=== PATIENT | female | born 1960 | race Caucasian/White ===

== ENCOUNTER 2016-10-09 11:16 | Emergency (ER) | payer SELFPAY ==
--- NOTE | 2016-10-09 11:42 | ER Document Report ---
ED Medical Screen (RME) - General Chief Complaint: Abdominal Pain Stated Complaint: STOMACH PAIN Time seen by provider: 11:41 Mode of Arrival: Ambulatory Information source: Patient Notes: 56-year-old female complaining of left-sided abdominal pain for a week. She has diarrhea and vomiting without blood or mucus. Fever Tuesday and Tuesday. Pain level is 4/5. Which is worse today. TRAVEL OUTSIDE OF THE [place] IN LAST 30 DAYS: No - Related Data Allergies/Adverse Reactions: No Known Allergies Allergy (Verified 10/09/16 11:40) Past Medical History - Past Medical History Cardiac Medical History: Reports: Hx Hypertension Pulmonary Medical History: Reports: Hx Tuberculosis - as a child, treated Neurological Medical History: Reports: Hx Migraine Past Surgical History: Reports: Hx Cholecystectomy, Hx Genitourinary Surgery - BLADDER SLING, Hx Hysterectomy, Hx Orthopedic Surgery - carpal tunnel, both wrists - Immunizations Hx Diphtheria, Pertussis, Tetanus Vaccination: No
[2016-10-09 12:15] LABS: ABSOLUTE EOSINOPHILS # (AUTO) 0.1 10^3/uL (0.0-0.6); ABSOLUTE LYMPHOCYTES (AUTO) 1.7 10^3/uL (0.5-4.7); ABSOLUTE MONOCYTES (AUTO) 0.5 10^3/uL (0.1-1.4); ABSOLUTE NEUT (AUTO) 4.1 10^3/uL (1.7-8.2); BASOPHILS % (AUTO) 0.6 % (0-2); EOSINOPHILS % (AUTO) 1.4 % (0-6); HEMATOCRIT 46.2 % (36.0-47.0); HEMOGLOBIN 15.3 g/dL (12.0-15.5); HGB HCT DIFFERENCE -0.3; LYMPHOCYTES % (AUTO) 26.5 % (13-45); MEAN CORPUSCULAR HEMOGLOBIN 30.1 pg (27.0-33.4); MEAN CORPUSCULAR VOLUME 91 fl (80-97); MONOCYTES % (AUTO) 8.2 % (3-13); RED BLOOD COUNT 5.07 10^6/uL (3.72-5.28); RED CELL DISTRIBUTION WIDTH 13.8 % (11.5-14.0); SEGMENTED NEUTROPHILS % (AUTO) 63.3 % (42-78); WHITE BLOOD COUNT 6.5 10^3/uL (4.0-10.5)
[2016-10-09 12:19] LABS: APPEARANCE,URINE CLOUDY; BILIRUBIN,URINE NEGATIVE (NEGATIVE); GLUCOSE, URINE NEGATIVE (NEGATIVE); KETONES,URINE NEGATIVE (NEGATIVE); LEUKOCYTE ESTERASE,URINE LARGE (NEGATIVE); NITRITE,URINE NEGATIVE (NEGATIVE); PROTEIN,URINE NEGATIVE (NEGATIVE); URINE SPECIFIC GRAVITY 1.018
[2016-10-09 12:28] LABS: ALANINE AMINOTRANSFERASE 48 U/L (9-52); ALBUMIN 5.3 g/dL (3.5-5.0); ALKALINE PHOSPHATASE 82 U/L (38-126); ANION GAP 14 (5-19); ASPARTATE AMINO TRANSFERASE 36 U/L (14-36); BILIRUBIN,TOTAL 1.1 mg/dL (0.2-1.3); BLOOD UREA NITROGEN 10 mg/dL (7-20); CALCIUM 10.3 mg/dL (8.4-10.2); CARBON DIOXIDE 25 mmol/L (22-30); CHLORIDE 108 mmol/L (98-107); CREATININE RESULT 0.74 mg/dL (0.52-1.25); GLUCOSE 97 mg/dL (75-110); LIPASE 96.4 U/L (23-300); POTASSIUM 3.9 mmol/L (3.6-5.0); SODIUM 146.6 mmol/L (137-145); TOTAL PROTEIN 7.9 g/dL (6.3-8.2)
--- NOTE | 2016-10-09 13:25 | ER Document Report ---
ED General - General Chief Complaint: Abdominal Pain Stated Complaint: STOMACH PAIN Mode of Arrival: Ambulatory Information source: Patient Notes: Patient presents to the emergency department with complaints of left upper quadrant abdominal pain urinary frequency and cloudy urine for one-week. Patient also reports she had vomiting and diarrhea on Tuesday and Tuesday of this week but no recent v/d. Patient reports she had to call out of work. Denies past medical history of chronic illnesses. Reports she received a flu shot last Tuesday and hasn't felt well since that time. TRAVEL OUTSIDE OF THE [place] IN LAST 30 DAYS: No - HPI Onset: Other - tuesday Quality of pain: Achy Severity: Moderate Pain Level: 3 Associated symptoms: None Exacerbated by: Denies Relieved by: Denies Similar symptoms previously: No Recently seen / treated by doctor: No - Related Data Allergies/Adverse Reactions: No Known Allergies Allergy (Verified 10/09/16 12:00) Past Medical History - General Information source: Patient - Social History Smoking Status: Unknown if Ever Smoked Chew tobacco use (# tins/day): No Frequency of alcohol use: None Drug Abuse: None Family History: Reviewed & Not Pertinent Patient has suicidal ideation: No Patient has homicidal ideation: No - Past Medical History Cardiac Medical History: Reports: Hx Hypertension Pulmonary Medical History: Reports: Hx Tuberculosis - as a child, treated Neurological Medical History: Reports: Hx Migraine Renal/ Medical History: Denies: Hx Peritoneal Dialysis Past Surgical History: Reports: Hx Cholecystectomy, Hx Genitourinary Surgery - BLADDER SLING, Hx Hysterectomy, Hx Orthopedic Surgery - carpal tunnel, both wrists - Immunizations Hx Diphtheria, Pertussis, Tetanus Vaccination: No Review of Systems - Review of Systems Notes: Review HPI for review of systems., All other systems negative Physical Exam - Vital signs Vitals: Temp Pulse Resp BP Pulse Ox 97.9 F 62 22 H 134/72 H 98 10/09/16 11:56 10/09/16 11:56 10/09/16 11:56 10/09/16 11:56 10/09/16 11:56 - Notes Notes: PHYSICAL EXAMINATION: GENERAL: Well-appearing and in no acute distress HEAD: Atraumatic, normocephalic. EYES: Pupils equal round and reactive to light, extraocular movements intact, sclera anicteric, conjunctiva are normal. ENT: nares patent, oropharynx clear without exudates. Moist mucous membranes. NECK: Normal range of motion, supple without lymphadenopathy LUNGS: CTAB and equal. No wheezes rales or rhonchi. HEART: Regular rate and rhythm without murmurs ABDOMEN: Soft, no tenderness. No guarding, no rebound no pain on palpation BACK: Denies pain EXTREMITIES: Normal range of motion, no pitting edema. No cyanosis. NEUROLOGICAL: Cranial nerves grossly intact. Normal sensory/motor exams. PSYCH: Normal mood, normal affect. SKIN: Warm, Dry, normal turgor, no rashes or lesions noted Course - Re-evaluation Re-evalutation: 10/09/16 Patient instructed on labs. Patient instructed on medication. She was instructed on signs and symptoms of allergic reaction. She was also instructed on the importance of follow-up for urine recheck in one week. She verbalized understanding. - Vital Signs Vital signs: Temp Pulse Resp BP Pulse Ox 98.1 F 67 18 134/87 H 98 10/09/16 13:30 10/09/16 13:30 10/09/16 13:30 10/09/16 13:30 10/09/16 13:30 - Laboratory Result Diagrams: 10/09/16 11:48 10/09/16 11:48 Laboratory results interpreted by me: 10/09/16 10/09/16 11:48 11:48 Sodium 146.6 H Chloride 108 H Calcium 10.3 H Albumin 5.3 H Urine Urobilinogen 2.0 H Ur Leukocyte Esterase LARGE H Discharge - Discharge Clinical Impression: elevated blood pressure Abdominal pain Qualifiers: Abdominal location: left upper quadrant Qualified Code(s): R10.12 - Left upper quadrant pain Urinary tract infection Qualifiers: Urinary tract infection type: site unspecified Hematuria presence: without hematuria Qualified Code(s): N39.0 - Urinary tract infection, site not specified Condition: Stable Disposition: HOME, SELF-CARE Instructions: Abdominal Pain ([facility]), Urinary Tract Infection ([facility]), Trimethoprim -Sulfa ([facility]) Additional Instructions: *You have been evaluated for abdominal pain, urinary frequency, UTI *Monitor your blood pressure. Your blood pressure was elevated today. This may be because you were anxious, in pain or because you need medication. It is important to follow up with your primary care provider for full evaluation. *Take medication as prescribed *Push fluids *Follow up with a primary care provider within one week for recheck *Plan urine recheck in one week *Return to ED for worsening condition, changes, needs *Return to ED if not better within 48 hours Prescriptions: Sulfamethoxazole/Trimethoprim [Bactrim Ds Tablet] 1 each PO BID #10 tablet Forms: Elevated Blood Pressure, Return to Work
[2016-10-09 13:34] VITALS: BP 134/87
== END 2016-10-09 13:34 | disposition home or self-care (01) ==
LOC: ER 11:16
DX: N39.0 Urinary tract infection, site not specified (principal); R10.12 Left upper quadrant pain; R35.0 Frequency of micturition; R11.10 Vomiting, unspecified; R19.7 Diarrhea, unspecified; I10 Essential (primary) hypertension; Z86.11 Personal history of tuberculosis; Z90.49 Acquired absence of other specified parts of digestive tract; Z90.710 Acquired absence of both cervix and uterus
CPT/HCPCS: 36415; 80053; 81001; 83690; 85025; 87086; 99284

== ENCOUNTER 2017-01-29 04:12 | Emergency (ER) | payer OTHER ==
[2017-01-29 04:20] VITALS: BP 140/84
--- NOTE | 2017-01-29 05:19 | ER Document Report ---
ED Foreign Body - General Chief Complaint: Foreign Body in Ear Stated Complaint: POSSIBLE BUG IN LEFT EAR Time Seen by Provider: 01/29/17 04:53 Notes: Patient is a 56-year-old female comes emergency department for chief complaint of possible bug in her left ear. She states that she awoke tonight to a crawling sensation and a buzzing noise. She put peroxide in her ears. She denies any current symptoms. She did not put a Q-tip in her ear or any other objects. She denies any other symptoms. TRAVEL OUTSIDE OF THE [place] IN LAST 30 DAYS: No - Related Data Allergies/Adverse Reactions: No Known Allergies Allergy (Verified 10/09/16 12:00) Past Medical History - General Information source: Patient - Social History Smoking Status: Never Smoker Frequency of alcohol use: None Lives with: Family Family History: Reviewed & Not Pertinent Patient has suicidal ideation: No Patient has homicidal ideation: No - Past Medical History Cardiac Medical History: Reports: Hx Hypertension Pulmonary Medical History: Reports: Hx Tuberculosis - as a child, treated Neurological Medical History: Reports: Hx Migraine Renal/ Medical History: Denies: Hx Peritoneal Dialysis Past Surgical History: Reports: Hx Cholecystectomy, Hx Genitourinary Surgery - BLADDER SLING, Hx Hysterectomy, Hx Orthopedic Surgery - carpal tunnel, both wrists - Immunizations Hx Diphtheria, Pertussis, Tetanus Vaccination: No Review of Systems - Review of Systems Constitutional: No symptoms reported EENT: See HPI Cardiovascular: No symptoms reported Respiratory: No symptoms reported Gastrointestinal: No symptoms reported Genitourinary: No symptoms reported Female Genitourinary: No symptoms reported Musculoskeletal: No symptoms reported Skin: No symptoms reported Hematologic/Lymphatic: No symptoms reported Neurological/Psychological: No symptoms reported Physical Exam - Vital signs Vitals: Temp Pulse Resp BP Pulse Ox 97.5 F 61 18 140/84 H 100 01/29/17 04:17 01/29/17 04:17 01/29/17 04:17 01/29/17 04:17 01/29/17 04:17 Interpretation: Normal - General General appearance: Appears well, Alert In distress: None - HEENT Head: Normocephalic, Atraumatic Eyes: Normal Conjunctiva: Normal Extraocular movements intact: Yes Eyelashes: Normal Pupils: PERRL Ears: Normal External canal: Foreign body - There appears to be a very small dark colored insect near the tympanic membrane in the back of the left ear canal. No bleeding, normal TM, normal examination otherwise Tympanic membrane: Normal Sinus: Normal Nasal: Normal Mouth/Lips: Normal Mucous membranes: Normal Pharynx: Normal Neck: Normal - Respiratory Respiratory status: No respiratory distress Chest status: Nontender Breath sounds: Normal Chest palpation: Normal - Cardiovascular Rhythm: Regular Heart sounds: Normal auscultation Murmur: No - Abdominal Inspection: Normal Distension: No distension Bowel sounds: Normal Tenderness: Nontender Organomegaly: No organomegaly - Back Back: Normal, Nontender - Extremities General upper extremity: Normal inspection, Nontender, Normal color, Normal ROM , Normal temperature General lower extremity: Normal inspection, Nontender, Normal color, Normal ROM , Normal temperature, Normal weight bearing. No: Ad's sign - Neurological Neuro grossly intact: Yes Cognition: Normal Orientation: AAOx4 Claudio Coma Scale Eye Opening: Spontaneous Claudio Coma Scale Verbal: Oriented Claudio Coma Scale Motor: Obeys Commands [place] Coma Scale Total: 15 Speech: Normal Motor strength normal: LUE, RUE, LLE, RLE Sensory: Normal - Psychological Associated symptoms: Normal affect, Normal mood - Skin Skin Temperature: Warm Skin Moisture: Dry Skin Color: Normal Course - Re-evaluation Re-evalutation: Quickly irrigated patient here, small insect removed intact (appears to be a large gnat). Normal examination of ear and canal afterwards. No other abnormalities noted. - Vital Signs Vital signs: Temp Pulse Resp BP Pulse Ox 97.5 F 61 18 140/84 H 100 01/29/17 04:01/29/17 04:17 01/29/17 04:17 01/29/17 04:01/29/17 04:17 Procedures - Additional Procedures ear irrigation Notes: Applied 3 drops of tetracaine, used lukewarm water to flush the left ear with 30 mL, small insect removedintact, evaluation afterwards unremarkable. Patient tolerated very well. Discharge - Discharge Clinical Impression: Ear foreign body Qualifiers: Encounter type: initial encounter Laterality: left Qualified Code(s): T16.2XXA - Foreign body in left ear, initial encounter Condition: Stable Disposition: HOME, SELF-CARE Additional Instructions: The insect has been removed. Follow-up with primary care. Return to the department for any concerning symptoms. Forms: Return to Work, Elevated Blood Pressure
== END 2017-01-29 05:30 | disposition home or self-care (01) ==
LOC: ER 04:12
DX: T16.2XXA Foreign body in left ear, initial encounter (principal)
CPT/HCPCS: 99282

== ENCOUNTER 2017-04-12 13:41 | Emergency (ER) | payer OTHER ==
[2017-04-12 13:52] VITALS: BP 146/77
--- NOTE | 2017-04-12 14:07 | ER Document Report ---
HPI - HPI Pain Level: 3 - REPRODUCTIVE Reproductive: DENIES: : - DERM Skin Color: Normal Past Medical History - Social History Family History: Reviewed & Not Pertinent Patient has suicidal ideation: No Patient has homicidal ideation: No - Past Medical History Cardiac Medical History: Reports: Hx Hypertension Pulmonary Medical History: Reports: Hx Tuberculosis - as a child, treated Neurological Medical History: Reports: Hx Migraine Renal/ Medical History: Denies: Hx Peritoneal Dialysis Past Surgical History: Reports: Hx Cholecystectomy, Hx Genitourinary Surgery - BLADDER SLING, Hx Hysterectomy, Hx Orthopedic Surgery - carpal tunnel, both wrists - Immunizations Hx Diphtheria, Pertussis, Tetanus Vaccination: No Vertical Provider Document - INFECTION CONTROL TRAVEL OUTSIDE OF THE [place] IN LAST 30 DAYS: No - RESPIRATORY O2 Sat by Pulse Oximetry: 96 Course - Vital Signs Vital signs: Temp Pulse Resp BP Pulse Ox 98.0 F 63 16 146/77 H 96 04/12/17 13:52 04/12/17 13:52 04/12/17 13:52 04/12/17 13:52 04/12/17 13:52
--- NOTE | 2017-04-12 15:03 | ER Document Report ---
ED Headache - General Chief Complaint: Ear Pain Stated Complaint: LEFT SIDE HEAD PAIN,DIZZY Time Seen by Provider: 04/12/17 14:07 Mode of Arrival: Ambulatory Information source: Patient Notes: 56-year-old female had sudden onset of exertional left parietal headache at 1030 yesterday morning level 1/5 and within an hour it was level 4/5 with associated vertigo, roaring in ears, blurry vision, and nausea and felt like she was going to have diarrhea. She layed around yesterday. this morning when she woke up she had bilateral base of head/neck pain, frontal headache and persistant roaring in ears and vertigo. No fever. No recent URI. Hx migraines 3- 4 times per month, that are only in the front. Has been told in the past to have a work up for aneurysm but never followed up. Ct done 07/2013 which was negative for the same presenting complaint that I found in her medical record. TRAVEL OUTSIDE OF THE [place] IN LAST 30 DAYS: No - Related Data Allergies/Adverse Reactions: No Known Allergies Allergy (Verified 04/12/17 13:49) Past Medical History - General Information source: Patient - Social History Smoking Status: Current Every Day Smoker Frequency of alcohol use: None Drug Abuse: None Lives with: Family Family History: Reviewed & Not Pertinent Patient has suicidal ideation: No Patient has homicidal ideation: No - Past Medical History Cardiac Medical History: Reports: Hx Hypertension Pulmonary Medical History: Reports: Hx Tuberculosis - as a child, treated Neurological Medical History: Reports: Hx Migraine Renal/ Medical History: Denies: Hx Peritoneal Dialysis Past Surgical History: Reports: Hx Cholecystectomy, Hx Genitourinary Surgery - BLADDER SLING, Hx Hysterectomy, Hx Orthopedic Surgery - carpal tunnel, both wrists - Immunizations Hx Diphtheria, Pertussis, Tetanus Vaccination: No Review of Systems - Review of Systems Constitutional: No symptoms reported EENT: See HPI Cardiovascular: No symptoms reported Respiratory: No symptoms reported Gastrointestinal: No symptoms reported Genitourinary: No symptoms reported Female Genitourinary: No symptoms reported Musculoskeletal: No symptoms reported Skin: No symptoms reported Hematologic/Lymphatic: No symptoms reported Neurological/Psychological: See HPI Physical Exam - Vital signs Vitals: Temp Pulse Resp BP Pulse Ox 98 F 74 14 146/7 H 100 04/12/17 13:49 04/12/17 13:49 04/12/17 13:49 04/12/17 13:49 04/12/17 13:49 Interpretation: Normal - General General appearance: Appears well, Alert In distress: None - HEENT Head: Normocephalic, Atraumatic Eyes: Normal Conjunctiva: Normal Extraocular movements intact: Yes Pupils: PERRL Nerve palsy: No External canal: Normal Tympanic membrane: Normal Mucous membranes: Normal Pharynx: Normal Neck: Supple. No: Lymphadenopathy - Respiratory Respiratory status: No respiratory distress Chest status: Nontender Breath sounds: Normal Chest palpation: Normal - Cardiovascular Rhythm: Regular Heart sounds: Normal auscultation Murmur: No - Abdominal Inspection: Normal Distension: No distension Bowel sounds: Normal Tenderness: Nontender Organomegaly: No organomegaly - Back Back: Normal, Nontender - Extremities General upper extremity: Normal inspection, Nontender, Normal color, Normal ROM , Normal temperature General lower extremity: Normal inspection, Nontender, Normal color, Normal ROM , Normal temperature, Normal weight bearing. No: Ad's sign - Neurological Neuro grossly intact: Yes Cognition: Normal Orientation: AAOx4 Claudio Coma Scale Eye Opening: Spontaneous [place] Coma Scale Verbal: Oriented [place] Coma Scale Motor: Obeys Commands Claudio Coma Scale Total: 15 Speech: Normal Motor strength normal: LUE, RUE, LLE, RLE Sensory: Normal - Psychological Associated symptoms: Normal affect, Normal mood - Skin Skin Temperature: Warm Skin Moisture: Dry Skin Color: Normal Skin irregularity: negative: Rash Course - Re-evaluation Re-evalutation: 04/12/17 14:[address] and need for LP to r/o SAH. He recommends doing a fluoroscopy LP adn will see the pt 04/12/17 15:09 Told about the same hx from -2012, and he will see pt before deciding about the lumbar puncture 04/12/17 15:[address], she does not remember the symptoms or being in this ER 2012. 04/12/17 15:45 dr. hernandez saw the pt and says that the LP is not needed, treatwith meds and I will refer to neurologyl. Pt also told him that she has had MR in the past, that they though that she should be evaluated for aneurysm but she did not because she got . 04/12/17 16:24 Headache level down to 2/5 she is feeling better and resting on her right side. 04/12/17 16:42 04/12/17 16:45 headache 0/5 - Vital Signs Vital signs: Temp Pulse Resp BP Pulse Ox 98.0 F 63 16 146/77 H 96 04/12/17 13:52 04/12/17 13:52 04/12/17 13:52 04/12/17 13:52 04/12/17 13:52 Discharge - Discharge Clinical Impression: Vertigo Headache Qualifiers: Headache type: unspecified Headache chronicity pattern: acute headache Intractability: not intractable Qualified Code(s): R51 - Headache Condition: Stable Disposition: HOME, SELF-CARE Instructions: Headache ([facility]), Vertigo ([facility]), Meclizine ([facility]), Neurologist Additional Instructions: see the neurologist meclizine for the vertigo plenty of fluids tylenol and motrin for headache to er if worse Please complete the patient satisfaction survey if you get one, and return it.. If you do not receive a survey, then you can go to the [facility] website, [email or web address] and place your comments about your very good care. Thank you very much. It was a pleasure being your medical provider today. Prescriptions: Meclizine HCl [Antivert 25 mg Tablet] 50 mg PO QID #60 tablet Referrals: RODNEY ROSARIO MD [ACTIVE STAFF] - Follow up as needed
--- NOTE | 2017-04-12 15:06 | RADIOLOGY REPORT (SQ) ---
EXAM DESCRIPTION: CT HEAD WITHOUT COMPLETED DATE/TIME: 04/12/2017 2:59 pm REASON FOR STUDY: headache COMPARISON: 08/04/2013. TECHNIQUE: Axial images acquired through the brain without intravenous contrast. Images reviewed wi th bone, brain and subdural windows. Images stored on PACS. All CT scanners at this facility use dose modulation, iterative reconstruction, and/or weight based d osing when appropriate to reduce radiation dose to as low as reasonably achievable (ALARA). [facility]: Dose Right [facility]: CareDose [facility]: Dose Right [facility]: Teradose 4D [facility]: Smart Bunch RADIATION DOSE: Up-to-date CT equipment and radiation dose reduction techniques were employed. CTDIv ol: 64.6 mGy. DLP: 1163 mGy-cm. mGy. LIMITATIONS: None. FINDINGS: VENTRICLES: Normal size and contour. CEREBRUM: No masses. No hemorrhage. No midline shift. Normal ocampo/white matter differentiation. N o evidence for acute infarction. CEREBELLUM: No masses. No hemorrhage. No alteration of density. No evidence for acute infarction. EXTRAAXIAL SPACES: No fluid collections. No masses. ORBITS AND GLOBE: No intra- or extraconal masses. Normal contour of globe without masses. CALVARIUM: No fracture. PARANASAL SINUSES: No fluid or mucosal thickening. SOFT TISSUES: No mass or hematoma. OTHER: No other significant finding. IMPRESSION: NORMAL BRAIN CT WITHOUT CONTRAST. TECHNICAL DOCUMENTATION: JOB ID: [id number] Quality ID # [id number]: Final reports with documentation of one or more dose reduction techniques (e.g., Au tomated exposure control, adjustment of the mA and/or kV according to patient size, use of iterative reconstruction technique) 2010 [employer]- All Rights Reserved
[2017-04-12] MEDS ORDERED: NORMAL SALINE 1000 ML 1,000 ML IV ONE (15:10)
[2017-04-12] MEDS ORDERED: PROCHLORPERAZINE EDISYLATE INJ 10 MG/2 ML VIAL IV ONE (15:10)
[2017-04-12] MEDS ORDERED: DIPHENHYDRAMINE HCL 50 MG/ML VIAL IV ONE (15:10)
[2017-04-12] MEDS ORDERED: KETOROLAC TROMETHAMINE INJ/PF 30 MG/1 ML SDV IV ONE (15:39)
== END 2017-04-12 17:09 | disposition home or self-care (01) ==
LOC: ER 13:41
DX: R42 Dizziness and giddiness (principal); R51 Headache; H92.02 Otalgia, left ear; F17.200 Nicotine dependence, unspecified, uncomplicated
CPT/HCPCS: 99283; 96374; 96375; 70450; J1200; J1885; J0780; J7030

== ENCOUNTER 2017-08-13 14:22 | Observation (INO) | payer OTHER ==
[2017-08-13] MEDS ORDERED: ASPIRIN 81 MG TABLET, CHEWABLE PO ONE (15:08)
--- NOTE | 2017-08-13 15:08 | ER Document Report ---
ED Medical Screen (RME) - General Chief Complaint: Chest Pain > 30 Stated Complaint: CHEST PAIN Time Seen by Provider: 08/13/17 15:07 TRAVEL OUTSIDE OF THE [place] IN LAST 30 DAYS: No - HPI Notes: 08/13/17 15:07 Chest pain since yesterday - Related Data Allergies/Adverse Reactions: No Known Allergies Allergy (Verified 08/13/17 14:39) Past Medical History - Social History Frequency of alcohol use: Occasional Drug Abuse: None - Past Medical History Cardiac Medical History: Reports: Hx Hypertension Pulmonary Medical History: Reports: Hx Tuberculosis - as a child, treated Neurological Medical History: Reports: Hx Migraine Renal/ Medical History: Denies: Hx Peritoneal Dialysis Past Surgical History: Reports: Hx Cholecystectomy, Hx Genitourinary Surgery - BLADDER SLING, Hx Hysterectomy, Hx Orthopedic Surgery - carpal tunnel, both wrists - Immunizations Hx Diphtheria, Pertussis, Tetanus Vaccination: No Review of Systems - Review of Systems Cardiovascular: Chest pain Physical Exam - Vital signs Vitals: Temp Pulse Resp BP Pulse Ox 98.4 F 72 16 120/80 96 08/13/17 14:35 08/13/17 14:35 08/13/17 14:35 08/13/17 14:35 08/13/17 14:35 - Respiratory Respiratory status: No respiratory distress Chest status: Nontender Breath sounds: Normal Chest palpation: Normal Course - Vital Signs Vital signs: Temp Pulse Resp BP Pulse Ox 98.4 F 72 16 120/80 96 08/13/17 14:35 08/13/17 14:35 08/13/17 14:35 08/13/17 14:35 08/13/17 14:35
--- NOTE | 2017-08-13 15:39 | ER Document Report ---
ED Cardiac - General Chief Complaint: Chest Pain > 30 Stated Complaint: CHEST PAIN Time Seen by Provider: 08/13/17 15:07 Mode of Arrival: Ambulatory Information source: Patient TRAVEL OUTSIDE OF THE [place] IN LAST 30 DAYS: No - HPI Patient complains to provider of: Chest pain Use of: denies: Alcohol, Amphetamines, Bath salts, Caffeine, Cocaine, Decongestants Was the onset of pain: Sudden When did pain begin: YESTERDAY AFTERNOON Is the pain a: New problem Chest pain location: Other - L. PARASTERNAL Quality of pain: Dull - MOSTLY, Sharp - OCCASIONALLY Chest pain radiation location: Left shoulder Severity now: None Severity at worst: Moderate Chest pain precipitating factors: At Rest Cardiac risk factors: Hypertension, Smoker. denies: Diabetes, Hx MS Positive cardiac history: No Associated symptoms: Nausea/vomiting, Shortness of breath. denies: Diaphoresis Exacerbated by: Denies Relieved by: Nothing Similar symptoms previously: No Recently seen / treated by doctor: Yes - Dx & Rx FOR "VAGINAL INFECTION" - Related Data Allergies/Adverse Reactions: No Known Allergies Allergy (Verified 08/13/17 14:39) Past Medical History - General Information source: Patient - Social History Smoking Status: Current Every Day Smoker Cigarette use (# per day): Yes Chew tobacco use (# tins/day): No Smoking Education Provided: No Frequency of alcohol use: Occasional Drug Abuse: None Lives with: Family Family History: denies: CAD Patient has suicidal ideation: No Patient has homicidal ideation: No - Past Medical History Cardiac Medical History: Reports: Hx Hypertension Pulmonary Medical History: Reports: Hx Tuberculosis - as a child, treated Neurological Medical History: Reports: Hx Migraine Renal/ Medical History: Denies: Hx Peritoneal Dialysis Past Surgical History: Reports: Hx Cholecystectomy, Hx Genitourinary Surgery - BLADDER SLING, Hx Hysterectomy, Hx Orthopedic Surgery - carpal tunnel, both wrists - Immunizations Hx Diphtheria, Pertussis, Tetanus Vaccination: No Review of Systems - Review of Systems Constitutional: No symptoms reported. denies: Diaphoresis EENT: No symptoms reported Cardiovascular: See HPI Respiratory: See HPI Gastrointestinal: See HPI Genitourinary: No symptoms reported Female Genitourinary: See HPI Musculoskeletal: No symptoms reported Skin: No symptoms reported Neurological/Psychological: No symptoms reported Physical Exam - Vital signs Vitals: Temp Pulse Resp BP Pulse Ox 98.4 F 72 16 120/80 96 08/13/17 14:35 08/13/17 14:35 08/13/17 14:35 08/13/17 14:35 08/13/17 14:35 Interpretation: Normal. No: Hypertensive, Tachycardic, Tachypneic - General General appearance: Appears well, Alert In distress: None - HEENT Head: Normocephalic Eyes: Normal Conjunctiva: Normal Ears: Normal Nasal: Normal Mouth/Lips: Normal Mucous membranes: Normal Pharynx: Normal Neck: Normal - Respiratory Respiratory status: No respiratory distress Chest status: Tender - MILDLY, IN AREA OF COMPLAINT Breath sounds: Normal - Cardiovascular Rhythm: Regular Heart sounds: Normal auscultation Murmur: No - Abdominal Inspection: Obese Bowel sounds: Normal - Back Back: Normal - Extremities General upper extremity: Normal inspection General lower extremity: Normal inspection. No: Tender, Edema - Neurological Neuro grossly intact: Yes Cognition: Normal Orientation: AAOx4 - Psychological Associated symptoms: Normal affect, Normal mood - Skin Skin Temperature: Warm Skin Moisture: Dry Skin Color: Normal Skin Turgor: Elastic Course - Vital Signs Vital signs: Temp Pulse Resp BP Pulse Ox 98.4 F 72 16 120/80 96 08/13/17 14:35 08/13/17 14:35 08/13/17 14:35 08/13/17 14:35 08/13/17 15:51 - Laboratory Result Diagrams: 08/13/17 15:30 08/13/17 15:30 Laboratory results interpreted by me: 08/13/17 08/13/17 15:30 15:30 WBC 10.9 H Hgb 16.2 H RDW 14.1 H Sodium 146.6 H - EKG Interpretation by In EKG shows normal: Sinus rhythm, Intervals, QRS Complexes, ST-T Waves. abnormal : [place] Rate: Normal Rhythm: NSR [place]/QRS: Left axis deviation - BORDERLINE When compared to previous EKG there are: Previous EKG unavailable - Consults DR. QUINN Time consulted: 17:22 Consulted provider: will come to ER Discharge - Discharge Clinical Impression: Chest pain with moderate risk for cardiac etiology Condition: Good Disposition: ADMITTED OBSERVATION Admitting Provider: Hospitalist Unit Admitted: Telemetry
[2017-08-13 15:50] LABS: ABSOLUTE EOSINOPHILS # (AUTO) 0.1 10^3/uL (0.0-0.6); ABSOLUTE LYMPHOCYTES (AUTO) 2.2 10^3/uL (0.5-4.7); ABSOLUTE MONOCYTES (AUTO) 1.2 10^3/uL (0.1-1.4); ABSOLUTE NEUT (AUTO) 7.3 10^3/uL (1.7-8.2); BASOPHILS % (AUTO) 0.3 % (0-2); EOSINOPHILS % (AUTO) 1.3 % (0-6); HEMATOCRIT 46.4 % (36.0-47.0); HEMOGLOBIN 16.2 g/dL (12.0-15.5); HGB HCT DIFFERENCE 2.2; LYMPHOCYTES % (AUTO) 20.5 % (13-45); MEAN CORPUSCULAR HGB CONC 34.8 g/dL (32.0-36.0); MEAN CORPUSCULAR VOLUME 89 fl (80-97); MONOCYTES % (AUTO) 11.2 % (3-13); RED BLOOD COUNT 5.21 10^6/uL (3.72-5.28); RED CELL DISTRIBUTION WIDTH 14.1 % (11.5-14.0); SEGMENTED NEUTROPHILS % (AUTO) 66.7 % (42-78); WHITE BLOOD COUNT 10.9 10^3/uL (4.0-10.5)
[2017-08-13 16:12] LABS: ALANINE AMINOTRANSFERASE 51 U/L (9-52); ALBUMIN 4.7 g/dL (3.5-5.0); ALKALINE PHOSPHATASE 87 U/L (38-126); ANION GAP 16 (5-19); ASPARTATE AMINO TRANSFERASE 31 U/L (14-36); BILIRUBIN,DIRECT 0.4 mg/dL (0.0-0.4); BILIRUBIN,TOTAL 0.8 mg/dL (0.2-1.3); BLOOD UREA NITROGEN 15 mg/dL (7-20); CALCIUM 9.9 mg/dL (8.4-10.2); CARBON DIOXIDE 24 mmol/L (22-30); CHLORIDE 107 mmol/L (98-107); CREATINE KINASE 62 U/L (30-135); CREATININE RESULT 0.85 mg/dL (0.52-1.25); GLUCOSE 95 mg/dL (75-110); POTASSIUM 4.2 mmol/L (3.6-5.0); SODIUM 146.6 mmol/L (137-145); TOTAL PROTEIN 7.4 g/dL (6.3-8.2)
[2017-08-13 16:19] LABS: CREATINE KINASE MB 0.36 ng/mL (<4.55)
[2017-08-13 16:25] LABS: TROPONIN I < 0.012 ng/mL
--- NOTE | 2017-08-13 16:25 | RADIOLOGY REPORT (SQ) ---
EXAM DESCRIPTION: CHEST PA/LAT COMPLETED DATE/TIME: 08/13/2017 4:15 pm REASON FOR STUDY: cp COMPARISON: 04/30/2015 EXAM PARAMETERS: NUMBER OF VIEWS: two views TECHNIQUE: Digital Frontal and Lateral radiographic views of the chest acquired. RADIATION DOSE: NA LIMITATIONS: none FINDINGS: LUNGS AND PLEURA: No opacities, masses or pneumothorax. No pleural effusion. MEDIASTINUM AND HILAR STRUCTURES: No masses or contour abnormalities. HEART AND VASCULAR STRUCTURES: Heart normal size. No evidence for failure. BONES: No acute findings. HARDWARE: Cholecystectomy clips. OTHER: No other significant finding. IMPRESSION: NO SIGNIFICANT RADIOGRAPHIC FINDING IN THE CHEST. TECHNICAL DOCUMENTATION: JOB ID: [id number] [employer]- All Rights Reserved
[2017-08-13] MEDS ORDERED: NITROGLYCERIN 2% OINTMENT 1 GM PACKET TP ONE (17:27)
[2017-08-13] MEDS ORDERED: OXYCODONE-ACETAMINOPHEN 5-325 MG TABLET PO PRN (18:15)
[2017-08-13] MEDS ORDERED: PROMETHAZINE HCL 25 MG TABLET PO PRN (18:15)
[2017-08-13] MEDS ORDERED: ACETAMINOPHEN 325 MG TABLET PO PRN (18:15)
[2017-08-13] MEDS ORDERED: TEMAZEPAM 15 MG CAPSULE PO PRN (18:15)
[2017-08-13] MEDS ORDERED: 1/2 NORMAL SALINE 1,000 ML IV PRN (18:15)
--- NOTE | 2017-08-13 18:15 | PDOC H&P ---
History of Present Illness Admission Date/PCP: 08/13/17 17:36 History of Present Illness: SAMMY DENISECHESTER is a 56 year old female who came to the emergency department at the urging of her roommate. Yesterday, the patient woke up with a severe headache at 12 PM. The patient works nights for [employer]. However, she was able to do some activities of daily living. She went to the [facility]. She still had a severe headache and was unable to eat lunch. Last evening she vomited once. She then went to sleep. When she woke up this morning she vomited and had runny diarrhea. The patient' s first episode of chest pain occurred today around 12 PM. The pain was described as sharp over the left anterior chest. Symptoms radiated to the left arm. Symptoms subsided spontaneously within 5 minutes. Her symptoms were not associated with exertion. There was no associated shortness of breath. After the chest pain the patient felt dizzy and saw green squiggly lines. During this her arm started to hurt followed by numbness. She also stated that she was dizzy and felt that she could not walk straight. She felt that she was going to fall down. Please note that the patient has a history of vertigo and chronic migraines. She states that the headache is similar to migraines in the past. The patient had a second episode of chest pain this afternoon at approximately 3 PM. The symptoms were similar to that described above. She then came into the emergency department. She was chest pain-free and we discussed discharge to home with timely follow-up but then she started to get fleeting chest pain again and agrees to stay overnight for observation. Past Medical History Cardiac Medical History: Reports: Hypertension Pulmonary Medical History: Reports: Tuberculosis - as a child, treated Neurological Medical History: Reports: Migraine Endocrine Medical History: Reports: Hypothyroidism Past Surgical History Past Surgical History: Reports: Cholecystectomy, Hysterectomy, Orthopedic Surgery - carpal tunnel, both wrists Social History Lives with: Friend Smoking Status: Current Every Day Smoker Cigars Per Day: 3 Frequency of Alcohol Use: Occasional Drugs: None Hx Prescription Drug Abuse: No - Advance Directive Resuscitation Status: Full Code Surrogate healthcare decision maker:: The patient does not have a surrogate decision maker. She is full code. Family History Family History: Reviewed & Not Pertinent Parental Family History Reviewed: Yes Children Family History Reviewed: Yes Sibling(s) Family History Reviewed.: Yes - Paternal grandmother and biological father both had lung cancer. Children have no significant medical problems. She is not in touch with her siblings. Medication/Allergy Home Medications: Sulfamethoxazole/Trimethoprim [Bactrim Ds Tablet] 1 each PO BID #10 tablet 10/09 Meclizine HCl [Antivert 25 mg Tablet] 50 mg PO QID #60 tablet 04/12/17 Allergies/Adverse Reactions: No Known Allergies Allergy (Verified 08/13/17 14:39) Review of Systems Constitutional: PRESENT: as per HPI Eyes: PRESENT: visual disturbances Ears: ABSENT: hearing changes Nose, Mouth, and Throat: ABSENT: as per HPI, headache(s), mouth pain, sore throat, vertigo, other Breasts: ABSENT: as per HPI, other Cardiovascular: PRESENT: as per HPI, chest pain Respiratory: ABSENT: cough, hemoptysis Gastrointestinal: PRESENT: diarrhea, nausea, vomiting Genitourinary: PRESENT: other - Is currently being treated for a vaginal infection. Musculoskeletal: PRESENT: as per HPI Integumentary: ABSENT: rash, wounds Neurological: PRESENT: dizziness, lack of coordination, numbness Psychiatric: ABSENT: anxiety, depression, homidical ideation, suicidal ideation Endocrine: ABSENT: cold intolerance, heat intolerance, polydipsia, polyuria Hematologic/Lymphatic: ABSENT: easy bleeding, easy bruising Allergic/Immunologic: ABSENT: as per HPI, seasonal rhinorrhea, other Physical Exam Vital Signs: Temp Pulse Resp BP Pulse Ox 98.4 F 72 16 120/80 96 08/13/17 14:35 08/13/17 14:35 08/13/17 14:35 08/13/17 14:35 08/13/17 15:51 Additional comments: The patient is a very pleasant middle-aged female. She does not appear to be in distress. Her cognition and mentation are normal. Her facial appearance is normal. Cranial nerves II through XII are intact. The patient's lips and mucous membranes are moist. Her dentition is good. Trachea is midline. Thyroid is nonpalpable. She does not have JVD. She does not have cervical or supraclavicular lymphadenopathy. The patient's lungs are clear to auscultation both anteriorly and posteriorly. Her cardiac exam is regular without murmurs, gallops or rubs. The abdomen is benign. The abdomen is soft and flat. Bowel sounds are present. There is no guarding or rebound and there are no hernias or masses present. The lower extremities are warm to touch without edema. Skin is warm dry and intact without lesions or rashes. Old tattoos are present. The patient has 5/5 strength throughout. She follows commands easily. Sensation is normal throughout. DTRs are 2+. Gait and station are normal. Romberg is negative. Results Impressions: Chest X-Ray 08/13/17 15:08 IMPRESSION: NO SIGNIFICANT RADIOGRAPHIC FINDING IN THE CHEST. Assessment & Plan - Diagnosis (1) Atypical chest pain Is this a current diagnosis for this admission?: Yes (2) Severe headache Is this a current diagnosis for this admission?: Yes (3) Nausea and vomiting Is this a current diagnosis for this admission?: Yes (4) Diarrhea Is this a current diagnosis for this admission?: Yes (5) Numbness of extremity Is this a current diagnosis for this admission?: Yes (6) Dizziness Is this a current diagnosis for this admission?: Yes - Time Time Spent: 30 to 50 Minutes - Inpatient Certification Medical Necessity: Risk of Diagnosis Which Will Require Inpatient Eval/Care/ Monitoring - Plan Summary Plan Summary: The patient will be placed on observation status. At this point in time I think that the patient is having a migraine. This will explain the patient's severe headache, her nausea with vomiting, the green squiggly lines, paresthesias in the extremities and dizziness. The atypical chest pain could be associated with vomiting. I do not think that the patient has cardiac chest pain but she will be ruled out overnight. The patient's symptomatology is less worrisome for TIA or stroke. Liver, a head CT was not performed in the emergency department and I would like to perform a head CT. Pending these results I do not think additional stroke workup is needed unless symptoms change overnight. The patient will be treated symptomatically for the headache , the nausea and vomiting. If diarrhea persists then we will need to rule out C. difficile colitis, other bacterial infections, etc.
--- NOTE | 2017-08-13 18:55 | RADIOLOGY REPORT (SQ) ---
EXAM DESCRIPTION: CT HEAD WITHOUT COMPLETED DATE/TIME: 08/13/2017 6:42 pm REASON FOR STUDY: TIA COMPARISON: 04/12/2017 TECHNIQUE: Axial images acquired through the brain without intravenous contrast. Images reviewed wi th bone, brain and subdural windows. Images stored on PACS. All CT scanners at this facility use dose modulation, iterative reconstruction, and/or weight based d osing when appropriate to reduce radiation dose to as low as reasonably achievable (ALARA). [facility]: Dose Right [facility]: CareDose [facility]: Dose Right [facility]: Teradose 4D [facility]: Smart Synbiota RADIATION DOSE: CT Rad equipment meets quality standard of care and radiation dose reduction techniq ues were employed. CTDIvol: 64.6 mGy. DLP: 1163 mGy-cm. mGy. LIMITATIONS: None. FINDINGS: VENTRICLES: Normal size and contour. CEREBRUM: No masses. No hemorrhage. No midline shift. No evidence for acute infarction. Normal gra y/white matter differentiation. No areas of low density in the white matter. CEREBELLUM: No masses. No hemorrhage. No alteration of density. No evidence for acute infarction. EXTRAAXIAL SPACES: No fluid collections. No masses. ORBITS AND GLOBE: No intra- or extraconal masses. Normal contour of globe without masses. CALVARIUM: No fracture. Incidental note is made of a tiny right frontal osseous excrescence underlyi ng the masseter muscle, unchanged. PARANASAL SINUSES: No fluid or mucosal thickening. SOFT TISSUES: No mass or hematoma. OTHER: No other significant finding. IMPRESSION: NORMAL BRAIN CT WITHOUT CONTRAST. EVIDENCE OF ACUTE STROKE: NO. COMMENT: Quality ID # [id number]: Final reports with documentation of one or more dose reduction techniques (e.g., Automated exposure control, adjustment of the mA and/or kV according to patient size, use of iterative reconstruction technique) TECHNICAL DOCUMENTATION: JOB ID: [id number] [employer]- All Rights Reserved
[2017-08-14] MEDS ORDERED: LACTULOSE SYRUP 20 GM/30 ML UDCUP PO ONE (00:30)
[2017-08-14 03:54] LABS: ANION GAP 13 (5-19); BLOOD UREA NITROGEN 19 mg/dL (7-20); CARBON DIOXIDE 23 mmol/L (22-30); CHLORIDE 108 mmol/L (98-107); CHOLESTEROL 143.95 mg/dL (0-200); CREATININE RESULT 0.82 mg/dL (0.52-1.25); Direct HDL 46 mg/dL (>40); GLUCOSE 105 mg/dL (75-110); POTASSIUM 3.5 mmol/L (3.6-5.0); SODIUM 144.1 mmol/L (137-145); TRIGLYCERIDES 123 mg/dL (<150)
[2017-08-14 04:05] LABS: DIRECT LDL 74 mg/dL (<100)
[2017-08-14] MEDS ORDERED: POTASSIUM CHLORIDE 10 MEQ TABLET.SA PO ONE (07:21)
[2017-08-14 08:29] LABS: APPEARANCE,URINE CLEAR; BILIRUBIN,URINE NEGATIVE (NEGATIVE); GLUCOSE, URINE NEGATIVE (NEGATIVE); KETONES,URINE NEGATIVE (NEGATIVE); LEUKOCYTE ESTERASE,URINE NEGATIVE (NEGATIVE); NITRITE,URINE NEGATIVE (NEGATIVE); PROTEIN,URINE NEGATIVE (NEGATIVE); UROBILINOGEN,URINE NEGATIVE mg/dL (<2.0)
--- NOTE | 2017-08-14 10:25 | PDOC DISCHARGE SUMMARY ---
General - Admit/Disc Date/PCP Admission Date/Primary Care Provider: 08/13/17 17:36 Discharge Date: 08/14/17 - Discharge Diagnosis (1) Atypical chest pain Is this a current diagnosis for this admission?: Yes (2) Severe headache Is this a current diagnosis for this admission?: Yes (3) Nausea and vomiting Is this a current diagnosis for this admission?: Yes (4) Diarrhea Is this a current diagnosis for this admission?: Yes (5) Numbness of extremity Is this a current diagnosis for this admission?: Yes (6) Dizziness Is this a current diagnosis for this admission?: Yes (7) Migraine Is this a current diagnosis for this admission?: Yes (8) Hypokalemia Is this a current diagnosis for this admission?: Yes (9) Leucocytosis Is this a current diagnosis for this admission?: Yes (10) Hypothyroidism Is this a current diagnosis for this admission?: Yes - Additional Information Resuscitation Status: Full Code Discharge Diet: Regular Discharge Activity: Activity As Tolerated Home Medications: No Home Medications 08/14/17 History of Present Illness History of Present Illness: SAMMY DENISECHESTER is a 56 year old female who came to the emergency department at the urging of her roommate. Yesterday, the patient woke up with a severe headache at 12 PM. The patient works nights for [employer]. However, she was able to do some activities of daily living. She went to the [facility]. She still had a severe headache and was unable to eat lunch. Last evening she vomited once. She then went to sleep. When she woke up this morning she vomited and had runny diarrhea. The patient' s first episode of chest pain occurred today around 12 PM. The pain was described as sharp over the left anterior chest. Symptoms radiated to the left arm. Symptoms subsided spontaneously within 5 minutes. Her symptoms were not associated with exertion. There was no associated shortness of breath. After the chest pain the patient felt dizzy and saw green squiggly lines. During this her arm started to hurt followed by numbness. She also stated that she was dizzy and felt that she could not walk straight. She felt that she was going to fall down. Please note that the patient has a history of vertigo and chronic migraines. She states that the headache is similar to migraines in the past. The patient had a second episode of chest pain this afternoon at approximately 3 PM. The symptoms were similar to that described above. She then came into the emergency department. She was chest pain-free and we discussed discharge to home with timely follow-up but then she started to get fleeting chest pain again and agrees to stay overnight for observation. Hospital Course Hospital Course: The patient's admitting symptoms were compatible with migraine with neurological involvement and oral. She was treated overnight with IV fluids and pain medications. Her symptoms are now resolved. She did have a head CT that does not demonstrate any significant findings. Her symptoms are not compatible with stroke and she will not undergo further evaluation at this time for TIA or stroke. Due to her atypical chest pain she was ruled out with cardiac enzymes. The patient was noted to have very mild leukocytosis on admission with a white blood cell count of 10.9. This was attributed to stress. This morning, her potassium slightly low at 3.5. This is likely dilutional from receiving IV fluids overnight. The patient's TSH is also noted to be elevated. She has a history of hypothyroidism and has not been taking any of her medications due to logistical problems with her insurance. Physical Exam Vital Signs: Temp Pulse Resp BP Pulse Ox 97.3 F 63 16 140/82 H 97 08/14/17 08:05 08/14/17 08:05 08/14/17 08:05 08/14/17 08:05 08/14/17 08:05 Intake & Output 08/13/17 08/14/17 08/15/17 06:59 06:59 06:59 Intake Total 1422 Output Total 2 Balance 1420 Weight 75.6 kg Additional comments: The patient appeared well this morning. Her cognition and mentation are normal. Her facial appearance is normal. Cranial nerves II through XII are intact. Her lungs are clear to auscultation bilaterally. Her cardiac exam is within normal limits. Her abdomen is benign. It is soft and flat. Bowel sounds are present. There is no guarding or rebound. The skin is warm, dry and intact without lesions or rashes. The patient does not have any pitting edema. She moves all 4 extremities well. She is able to follow commands. She has no focal neurological defects noted. Results Laboratory Results: 08/14/17 03:04 08/14/17 08/14/17 08/14/17 03:04 03:04 08:03 Sodium 144.1 Potassium 3.5 L Chloride 108 H Carbon Dioxide 23 Anion Gap 13 BUN 19 Creatinine 0.82 Est GFR ( Amer) > 60 Est GFR (Non-Af Amer) > 60 Glucose 105 Calcium 9.0 Triglycerides 123 Cholesterol 143.95 LDL Cholesterol Direct 74 VLDL Cholesterol 25.0 HDL Cholesterol 46 TSH 5.49 H Urine Color STRAW Urine Appearance CLEAR Urine pH 6.0 Ur Specific [place] 1.010 Urine Protein NEGATIVE Urine Glucose (UA) NEGATIVE Urine Ketones NEGATIVE Urine Blood NEGATIVE Urine Nitrite NEGATIVE Ur Leukocyte Esterase NEGATIVE Urine WBC (Auto) 1 Urine RBC (Auto) 0 08/13/17 08/14/17 21:45 03:04 Troponin I < 0.012 < 0.012 Impressions: Head CT 08/13/17 00:00 IMPRESSION: NORMAL BRAIN CT WITHOUT CONTRAST. EVIDENCE OF ACUTE STROKE: NO. Chest X-Ray 08/13/17 15:08 IMPRESSION: NO SIGNIFICANT RADIOGRAPHIC FINDING IN THE CHEST. Plan Discharge Plan: 1. The patient was instructed to follow-up with her primary rn coronary care unit as soon as possible. If migraine recurs she is to contact her physician. Time Spent: Less than 30 Minutes
[2017-08-14 11:45] VITALS: BP 122/68
--- NOTE | 2017-08-15 06:04 | EKG REPORT ---
SEVERITY:- ABNORMAL ECG - SINUS RHYTHM BORDERLINE LEFT AXIS DEVIATION CONSIDER ANTEROSEPTAL INFARCT : Confirmed by: Lian Brown MD 15-Aug-2017 06:03:05
== END 2017-08-14 12:22 | disposition home or self-care (01) ==
LOC: ER 14:22 → EH 17:36 → 3W 21:19
PROVIDERS: ADMIT Internal Medicine; ATTEND Internal Medicine
DX: R07.89 Other chest pain (principal); G43.909 Migraine, unspecified, not intractable, without status migrainosus; R11.2 Nausea with vomiting, unspecified; R19.7 Diarrhea, unspecified; R20.0 Anesthesia of skin; R42 Dizziness and giddiness; E87.6 Hypokalemia; D72.829 Elevated white blood cell count, unspecified; E03.9 Hypothyroidism, unspecified; F17.290 Nicotine dependence, other tobacco product, uncomplicated; F17.210 Nicotine dependence, cigarettes, uncomplicated; E66.9 Obesity, unspecified; Z68.31 Body mass index [BMI] 31.0-31.9, adult; Z90.49 Acquired absence of other specified parts of digestive tract; Z90.710 Acquired absence of both cervix and uterus; Z80.1 Family history of malignant neoplasm of trachea, bronchus and lung; Z86.11 Personal history of tuberculosis; Z98.890 Other specified postprocedural states
CPT/HCPCS: 93005; 99285; 36415 ×2; 82553; 82550; 84443; 85025; 85610; 80048; 80053; 81001; 84484 ×2; 80061; 71020; 70450; 93010; G0378 ×3; J3490

== ENCOUNTER 2018-06-30 11:41 | Emergency (ER) | payer SELFPAY ==
--- NOTE | 2018-06-30 12:20 | ER Document Report ---
ED Medical Screen (RME) - General Chief Complaint: Lower Abdominal Pain Stated Complaint: ABDOMINAL AND URINATION PAIN Time Seen by Provider: 06/30/18 12:19 Mode of Arrival: Ambulatory Information source: Patient TRAVEL OUTSIDE OF THE [place] IN LAST 30 DAYS: No - HPI Patient complains to provider of: abd pain Onset: Other - pt. with c/o low abd pain for the past 4 days - Related Data Allergies/Adverse Reactions: No Known Allergies Allergy (Verified 06/30/18 11:46) Past Medical History - Social History Frequency of alcohol use: Rare Drug Abuse: None - Past Medical History Cardiac Medical History: Reports: Hx Hypertension Pulmonary Medical History: Reports: Hx Tuberculosis - as a child, treated Neurological Medical History: Reports: Hx Migraine Endocrine Medical History: Reports: Hx Hypothyroidism Renal/ Medical History: Denies: Hx Peritoneal Dialysis Psychiatric Medical History: Denies: Hx Depression Past Surgical History: Reports: Hx Cholecystectomy, Hx Genitourinary Surgery - BLADDER SLING, Hx Hysterectomy, Hx Orthopedic Surgery - carpal tunnel, both wrists - Immunizations Hx Diphtheria, Pertussis, Tetanus Vaccination: No History of Influenza Vaccine for 06/2017 - 11/2017 Season: Yes Physical Exam - Vital signs Vitals: Temp Pulse Resp BP Pulse Ox 97.8 F 64 16 121/74 97 06/30/18 12:07 06/30/18 12:07 06/30/18 12:07 06/30/18 12:07 06/30/18 12:07 Course - Vital Signs Vital signs: Temp Pulse Resp BP Pulse Ox 97.8 F 64 16 121/74 97 06/30/18 12:07 06/30/18 12:07 06/30/18 12:07 06/30/18 12:07 06/30/18 12:07
--- NOTE | 2018-06-30 13:07 | RADIOLOGY REPORT (SQ) ---
EXAM DESCRIPTION: ACUTE ABDOMEN SERIES COMPLETED DATE/TIME: 06/30/2018 12:50 pm REASON FOR STUDY: ABD PAIN COMPARISON: None. NUMBER OF VIEWS: Three views. TECHNIQUE: Frontal chest, supine abdomen and upright/decubitus abdomen radiographic images acquired. LIMITATIONS: None. FINDINGS: CHEST: Lungs clear of infiltrates. FREE AIR: None. No abnormal gas collections. BOWEL GAS PATTERN: Nonobstructive pattern. No dilated loops or air fluid levels. CALCIFICATIONS: No suspicious calcifications. HARDWARE: None in the abdomen. SOFT TISSUES: No gross mass or suggestion of organomegaly. BONES: No acute fracture. No worrisome bone lesions. OTHER: No other significant finding. IMPRESSION: NO RADIOGRAPHIC EVIDENCE FOR ACUTE ABDOMINAL DISEASE. TECHNICAL DOCUMENTATION: JOB ID: [id number] [employer]- All Rights Reserved Reading location - IP/workstation name: [email or web address]
[2018-06-30 13:23] LABS: ABSOLUTE BASOPHILS # (AUTO) 0.1 10^3/uL (0.0-0.2); ABSOLUTE EOSINOPHILS # (AUTO) 0.2 10^3/uL (0.0-0.6); ABSOLUTE LYMPHOCYTES (AUTO) 2.1 10^3/uL (0.5-4.7); ABSOLUTE MONOCYTES (AUTO) 0.9 10^3/uL (0.1-1.4); ABSOLUTE NEUT (AUTO) 4.7 10^3/uL (1.7-8.2); BASOPHILS % (AUTO) 0.7 % (0-2); EOSINOPHILS % (AUTO) 2.4 % (0-6); HEMOGLOBIN 16.1 g/dL (12.0-15.5); LYMPHOCYTES % (AUTO) 26.8 % (13-45); MEAN CORPUSCULAR HEMOGLOBIN 30.3 pg (27.0-33.4); MEAN CORPUSCULAR HGB CONC 34.2 g/dL (32.0-36.0); MEAN CORPUSCULAR VOLUME 89 fl (80-97); MONOCYTES % (AUTO) 10.8 % (3-13); PLATELET COUNT 340 10^3/uL (150-450); SEGMENTED NEUTROPHILS % (AUTO) 59.3 % (42-78); TOTAL CELLS COUNTED % (AUTO) 100 %
[2018-06-30 13:44] LABS: ALANINE AMINOTRANSFERASE 46 U/L (9-52); ALBUMIN 4.6 g/dL (3.5-5.0); ALKALINE PHOSPHATASE 77 U/L (38-126); ANION GAP 8 (5-19); ASPARTATE AMINO TRANSFERASE 33 U/L (14-36); BILIRUBIN,DIRECT 0.2 mg/dL (0.0-0.4); BLOOD UREA NITROGEN 18 mg/dL (7-20); CALCIUM 10.4 mg/dL (8.4-10.2); CARBON DIOXIDE 26 mmol/L (22-30); CHLORIDE 111 mmol/L (98-107); GLUCOSE 105 mg/dL (75-110); POTASSIUM 3.5 mmol/L (3.6-5.0); SODIUM 145.3 mmol/L (137-145); TOTAL PROTEIN 7.4 g/dL (6.3-8.2)
[2018-06-30 14:01] LABS: AMORPHOUS SEDIMENT,URINE TRACE /HPF; APPEARANCE,URINE TURBID; BILIRUBIN,URINE NEGATIVE (NEGATIVE); COLOR,URINE YELLOW; GLUCOSE, URINE NEGATIVE (NEGATIVE); KETONES,URINE NEGATIVE (NEGATIVE); LEUKOCYTE ESTERASE,URINE NEGATIVE (NEGATIVE); NITRITE,URINE NEGATIVE (NEGATIVE); PROTEIN,URINE 100 mg/dL (NEGATIVE); URINE SPECIFIC GRAVITY 1.026
[2018-06-30] MEDS ORDERED: IBUPROFEN 600 MG TABLET PO ONE (14:17)
[2018-06-30] MEDS ORDERED: OXYCODONE-ACETAMINOPHEN 5-325 MG TABLET PO ONE (14:17)
[2018-06-30] MEDS ORDERED: ONDANSETRON 4 MG TAB.RAPDIS PO ONE (14:18)
--- NOTE | 2018-06-30 14:22 | ER Document Report ---
ED GI/ - General Chief Complaint: Lower Abdominal Pain Stated Complaint: ABDOMINAL AND URINATION PAIN Time Seen by Provider: 06/30/18 12:19 Mode of Arrival: Ambulatory Notes: This is a 57-year-old female to the emergency department chief complaint of some right-sided flank pain and right lower quadrant abdominal pain. Symptoms have been present on and off for approximately 4 days. No other major associated signs or symptoms. Denies any fever, chills, sweats. No diarrhea. No vomiting. Has had some mild dysuria. TRAVEL OUTSIDE OF THE [place] IN LAST 30 DAYS: No - HPI Patient complains to provider of: Abdominal pain, Dysuria, Flank pain, Hematuria - Related Data Allergies/Adverse Reactions: No Known Allergies Allergy (Verified 06/30/18 11:46) Past Medical History - General Information source: Patient - Social History Smoking Status: Current Every Day Smoker Frequency of alcohol use: Rare Drug Abuse: None Lives with: Family Family History: Reviewed & Not Pertinent Patient has suicidal ideation: No Patient has homicidal ideation: No - Past Medical History Cardiac Medical History: Reports: Hx Hypertension Pulmonary Medical History: Reports: Hx Tuberculosis - as a child, treated Neurological Medical History: Reports: Hx Migraine Endocrine Medical History: Reports: Hx Hypothyroidism Renal/ Medical History: Denies: Hx Peritoneal Dialysis Psychiatric Medical History: Denies: Hx Depression Past Surgical History: Reports: Hx Cholecystectomy, Hx Genitourinary Surgery - BLADDER SLING, Hx Hysterectomy, Hx Orthopedic Surgery - carpal tunnel, both wrists - Immunizations Hx Diphtheria, Pertussis, Tetanus Vaccination: No Review of Systems - Review of Systems Notes: Constitutional: denies: Chills, Diaphoresis, Fever, Malaise, Weakness EENT: denies: Eye discharge, Blurred vision, Tearing, Double vision, Nose congestion, Nose discharge, Throat swelling, Mouth pain Cardiovascular: denies: Palpitations, Heart racing, Orthopnea, Dyspnea, Chest pain Respiratory: denies: Cough, Hurts to breathe, Wheezing, Shortness of breath Gastrointestinal: Point of some right lower quadrant abdominal pain, right flank pain, no diarrhea. No vomiting. Genitourinary: Complaining of some mild right-sided flank pain with some mild dysuria and questionable hematuria Musculoskeletal: denies: Joint pain, Joint swelling, Muscle pain, Muscle stiffness, back pain Hematologic/Lymphatic: denies: Anemia, Easy bleeding, Easy bruising, Blood clots Neurological/Psychological: denies: Confusion, Dementia, Depression, Loss of consciousness Skin: No lesions, no masses, no skin breakdown, no abscesses Physical Exam - Vital signs Vitals: Temp Pulse Resp BP Pulse Ox 97.8 F 64 16 121/74 97 06/30/18 12:07 06/30/18 12:07 06/30/18 12:07 06/30/18 12:07 06/30/18 12:07 Interpretation: Normal - General General appearance: Appears well, Alert - HEENT Head: Normocephalic, Atraumatic Eyes: Normal Pupils: PERRL - Respiratory Respiratory status: No respiratory distress Chest status: Nontender Breath sounds: Normal Chest palpation: Normal - Cardiovascular Rhythm: Regular Heart sounds: Normal auscultation Murmur: No - Abdominal Inspection: Normal Distension: No distension Bowel sounds: Normal Tenderness: Nontender Organomegaly: No organomegaly - Back Back: Normal, Nontender - Extremities General upper extremity: Normal inspection, Nontender, Normal color, Normal ROM , Normal temperature General lower extremity: Normal inspection, Nontender, Normal color, Normal ROM , Normal temperature, Normal weight bearing. No: Ad's sign - Neurological Neuro grossly intact: Yes Cognition: Normal Orientation: AAOx4 [place] Coma Scale Eye Opening: Spontaneous [place] Coma Scale Verbal: Oriented Claudio Coma Scale Motor: Obeys Commands [place] Coma Scale Total: 15 Speech: Normal Motor strength normal: LUE, RUE, LLE, RLE Sensory: Normal - Psychological Associated symptoms: Normal affect, Normal mood - Skin Skin Temperature: Warm Skin Moisture: Dry Skin Color: Normal Course - Re-evaluation Re-evalutation: 06/30/18 15:23 Laboratory 06/30/18 06/30/18 06/30/18 12:50 12:50 12:50 WBC 8.0 RBC 5.30 H Hgb 16.1 H Hct 47.0 MCV 89 MCH 30.3 MCHC 34.2 RDW 14.0 Plt Count 340 Seg Neutrophils % 59.3 Lymphocytes % 26.8 Monocytes % 10.8 Eosinophils % 2.4 Basophils % 0.7 Absolute Neutrophils 4.7 Absolute Lymphocytes 2.1 Absolute Monocytes 0.9 Absolute Eosinophils 0.2 Absolute Basophils 0.1 Sodium 145.3 H Potassium 3.5 L Chloride 111 H Carbon Dioxide 26 Anion Gap 8 BUN 18 Creatinine 1.10 Est GFR ( Amer) > 60 Est GFR (Non-Af Amer) 52 L Glucose 105 Calcium 10.4 H Total Bilirubin 1.0 Direct Bilirubin 0.2 Neonat Total Bilirubin Not Reportable Neonat Direct Bilirubin Not Reportable Neonat Indirect Bili Not Reportable AST 33 ALT 46 Alkaline Phosphatase 77 Total Protein 7.4 Albumin 4.6 Urine Color YELLOW Urine Appearance TURBID Urine pH 6.0 Ur Specific [place] 1.026 Urine Protein 100 H Urine Glucose (UA) NEGATIVE Urine Ketones NEGATIVE Urine Blood LARGE H Urine Nitrite NEGATIVE Urine Bilirubin NEGATIVE Urine Urobilinogen 4.0 H Ur Leukocyte Esterase NEGATIVE Urine WBC (Auto) 5 Urine RBC (Auto) >182 Squamous Epi Cells Auto 13 Amorphous Sediment Auto TRACE Urine Mucus (Auto) MANY Urine Ascorbic Acid NEGATIVE Acute Abdomen Series 06/30/18 12:29 IMPRESSION: NO RADIOGRAPHIC EVIDENCE FOR ACUTE ABDOMINAL DISEASE. Abdomen/Pelvis CT 06/30/18 14:18 IMPRESSION: There is right hydronephrosis and hydroureter there is secondary either to recent passage of a small calculus or to the presence of a small calculus in the intramural portion of the right ureter. According to radiologist there is some hydronephrosis and hydroureter with possible small calculus in the intramural portion of the right ureter. No evidence of infection. At this time I will recommend oral pain management, Flomax, follow-up with urology. Return for any worsening symptoms or concerns especially if you develop fever, chills, sweats or inability to take your medications. - Vital Signs Vital signs: Temp Pulse Resp BP Pulse Ox 97.8 F 64 16 121/74 97 06/30/18 12:07 06/30/18 12:07 06/30/18 12:07 06/30/18 12:07 06/30/18 12:07 - Laboratory Result Diagrams: 06/30/18 12:50 06/30/18 12:50 Laboratory results interpreted by me: 06/30/18 06/30/18 06/30/18 12:50 12:50 12:50 RBC 5.30 H Hgb 16.1 H Sodium 145.3 H Potassium 3.5 L Chloride 111 H Est GFR (Non-Af Amer) 52 L Calcium 10.4 H Urine Protein 100 H Urine Blood LARGE H Urine Urobilinogen 4.0 H Discharge - Discharge Clinical Impression: Kidney stone on right side Condition: Good Disposition: HOME, SELF-CARE Instructions: Kidney Stone ([facility]) Additional Instructions: It appears that you may have a kidney stone at this time. In the event that you develop fever, worsening symptoms or concerns you will need to be seen. Please return immediately for any worsening symptoms. Please make adequate follow-up. Take all medications as prescribed Prescriptions: Ondansetron [Zofran Odt 4 mg Tablet] 1 - 2 tab PO Q4HP PRN #10 tab.rapdis PRN Reason: Ibuprofen [Motrin 800 mg Tablet] 800 mg PO Q8H PRN #30 tab PRN Reason: Oxycodone HCl/Acetaminophen [Percocet 5-325 mg Tablet] 1 tab PO TID 5 Days #15 tab Tamsulosin HCl [Flomax 0.4 mg Cap.sr] 0.4 mg PO DAILY #7 cap.sr.24h Referrals: [facility] [Provider Group] - Follow up in 3-5 days
--- NOTE | 2018-06-30 15:01 | RADIOLOGY REPORT (SQ) ---
EXAM DESCRIPTION: CT ABD/PELVIS NO ORAL OR IV COMPLETED DATE/TIME: 06/30/2018 2:48 pm REASON FOR STUDY: left flank pain with hematuria COMPARISON: None. TECHNIQUE: CT scan of the abdomen and pelvis performed without intravenous or oral contrast. Images reviewed with lung, soft tissue, and bone windows. Reconstructed coronal and sagittal MPR images revi ewed. All images stored on PACS. All CT scanners at this facility use dose modulation, iterative reconstruction, and/or weight based d osing when appropriate to reduce radiation dose to as low as reasonably achievable (ALARA). [facility]: Dose Right [facility]: CareDose [facility]: Dose Right [facility]: Teradose 4D [facility]: Takes RADIATION DOSE: CT Rad equipment meets quality standard of care and radiation dose reduction techniq ues were employed. CTDIvol: 9.9 mGy. DLP: 540 mGy-cm.mGy. LIMITATIONS: None. FINDINGS: LOWER CHEST: No significant findings. No nodules or infiltrates. NON-CONTRASTED LIVER, SPLEEN, ADRENALS: Evaluation limited by lack of IV contrast. No identified sign ificant masses. PANCREAS: No masses. No peripancreatic inflammatory changes. GALLBLADDER: Surgically absent. RIGHT KIDNEY AND URETER: No suspicious masses. Assessment limited by lack of IV contrast. There is a 3 mm calcification seen on image 79 series 3 that is either in the bladder or in the intramural por tion of the right ureter. Mild hydronephrosis and hydroureter. LEFT KIDNEY AND URETER: No suspicious masses. Assessment limited by lack of IV contrast. No signifi cant calcifications. No hydronephrosis or hydroureter. AORTA AND RETROPERITONEUM: No aneurysm. No retroperitoneal masses or adenopathy. BOWEL AND PERITONEAL CAVITY: No obvious masses or inflammatory changes. No free fluid. APPENDIX: Normal. PELVIS, BLADDER, AND ABDOMINAL WALL:No abnormal masses. No free fluid. Bladder normal. BONES: No significant findings. OTHER: No other significant finding. IMPRESSION: There is right hydronephrosis and hydroureter there is secondary either to recent passag e of a small calculus or to the presence of a small calculus in the intramural portion of the right u reter. COMMENT: Quality ID # [id number]: Final reports with documentation of one or more dose reduction techniques (e.g., Automated exposure control, adjustment of the mA and/or kV according to patient size, use of iterative reconstruction technique) TECHNICAL DOCUMENTATION: JOB ID: [id number] [employer]- All Rights Reserved Reading location - IP/workstation name: [email or web address]
[2018-06-30] MEDS ORDERED: TAMSULOSIN HCL 0.4 MG CAP.SR.24H PO ONE (15:20)
[2018-06-30] MEDS ORDERED: PHENAZOPYRIDINE HCL 100 MG TABLET PO ONE (15:22)
[2018-06-30 15:37] VITALS: BP 148/80
== END 2018-06-30 15:50 | disposition home or self-care (01) ==
LOC: ER 11:41
DX: N13.2 Hydronephrosis with renal and ureteral calculous obstruction (principal); R30.0 Dysuria; F17.200 Nicotine dependence, unspecified, uncomplicated; I10 Essential (primary) hypertension
CPT/HCPCS: 99284; 36415; 85025; 80053; 81001; 74022; 74176; S0119; J3490

== ENCOUNTER 2019-03-29 07:31 | Emergency (ER) | payer SELFPAY ==
--- NOTE | 2019-03-29 09:12 | RADIOLOGY REPORT (SQ) ---
EXAM DESCRIPTION: CHEST 2 VIEWS COMPLETED DATE/TIME: 03/29/2019 9:05 am REASON FOR STUDY: pain medial clavicle/sternum COMPARISON: 08/13/2017 EXAM PARAMETERS: NUMBER OF VIEWS: two views TECHNIQUE: Digital Frontal and Lateral radiographic views of the chest acquired. RADIATION DOSE: NA LIMITATIONS: none FINDINGS: LUNGS AND PLEURA: No opacities, masses or pneumothorax. No pleural effusion. MEDIASTINUM AND HILAR STRUCTURES: No masses or contour abnormalities. HEART AND VASCULAR STRUCTURES: Heart normal size. No evidence for failure. BONES: No acute findings. HARDWARE: None in the chest. OTHER: No other significant finding. IMPRESSION: NO ACUTE RADIOGRAPHIC FINDING IN THE CHEST. TECHNICAL DOCUMENTATION: JOB ID: [id number] [employer]- All Rights Reserved Reading location - IP/workstation name: [email or web address]
--- NOTE | 2019-03-29 09:50 | ER Document Report ---
ED General - General Chief Complaint: Skin Problem Stated Complaint: ABSCESS Time Seen by Provider: 03/29/19 08:41 Notes: Patient is a 58-year-old female presents to the emergency department for "a lump on my chest." Patient states she was moving furniture yesterday and yesterday evening had some pain upon rotation of her right shoulder. Patient states she also feels a bump on the medial aspect of her right clavicle where it meets her sternum. Patient's denying any trauma, falls or known injuries. Patient states her coworkers sent her to the emergency department to make sure "it was not a tumor." Past medical history: Hypothyroid Medications: Currently none Allergies: None Patient is denying any unexplained weight loss, fevers, night sweats, history of cancer for herself. TRAVEL OUTSIDE OF THE [place] IN LAST 30 DAYS: No - Related Data Allergies/Adverse Reactions: No Known Allergies Allergy (Verified 03/29/19 07:33) Past Medical History - General Information source: Patient - Social History Smoking Status: Current Every Day Smoker Frequency of alcohol use: Occasional Drug Abuse: None Family History: Reviewed & Not Pertinent Patient has suicidal ideation: No Patient has homicidal ideation: No - Past Medical History Cardiac Medical History: Reports: Hx Hypertension Pulmonary Medical History: Reports: Hx Tuberculosis - as a child, treated Neurological Medical History: Reports: Hx Migraine Endocrine Medical History: Reports: Hx Hypothyroidism Renal/ Medical History: Denies: Hx Peritoneal Dialysis Psychiatric Medical History: Denies: Hx Depression Past Surgical History: Reports: Hx Cholecystectomy, Hx Genitourinary Surgery - BLADDER SLING, Hx Hysterectomy, Hx Orthopedic Surgery - carpal tunnel, both wrists - Immunizations Hx Diphtheria, Pertussis, Tetanus Vaccination: No Review of Systems - Review of Systems Constitutional: See HPI. denies: Fever, Weakness EENT: No symptoms reported Cardiovascular: denies: Chest pain, Palpitations, Heart racing, Dyspnea Respiratory: denies: Cough, Short of breath Gastrointestinal: No symptoms reported Genitourinary: No symptoms reported Female Genitourinary: No symptoms reported Musculoskeletal: See HPI Skin: See HPI Hematologic/Lymphatic: No symptoms reported Neurological/Psychological: No symptoms reported Physical Exam - Vital signs Vitals: Temp Pulse Resp BP Pulse Ox 97.6 F 58 L 18 142/79 H 97 03/29/19 07:34 03/29/19 07:34 03/29/19 07:34 03/29/19 07:34 03/29/19 07:34 - Notes Notes: GENERAL: Alert, interacts well. No acute distress. HEAD: Normocephalic, atraumatic. EYES: Pupils equal, round, and reactive to light. Extraocular movements intact. ENT: Oral mucosa moist, tongue midline. NECK: Full range of motion. Supple. Trachea midline. LUNGS: Clear to auscultation bilaterally, no wheezes, rales, or rhonchi. No respiratory distress. HEART: Regular rate and rhythm. No murmur Chest: No crepitus felt, no erythema ecchymosis noted anterior posterior chest wall. I do not appreciate a "bump" to the patient's anterior chest. Patient is stating and pointing to her pain the medial aspect of her right clavicle where it meets the sternum. ABDOMEN: Soft, non-tender. Non-distended. Bowel sounds present in all 4 quadrants. EXTREMITIES: Moves all 4 extremities spontaneously. No edema, normal radial and dorsalis pedis pulses bilaterally. No cyanosis. Full range of motion right shoulder, patient currently denies pain. BACK: no cervical, thoracic, lumbar midline tenderness. No saddle anesthesia, normal distal neurovascular exam. NEUROLOGICAL: Alert and oriented x3. Normal speech. cranial nerves II through XII grossly intact. PSYCH: Normal affect, normal mood. SKIN: Warm, dry, normal turgor. No rashes or lesions noted. Course - Re-evaluation Re-evalutation: 03/29/19 09:50 Chest X-Ray 03/29/19 08:49 IMPRESSION: NO ACUTE RADIOGRAPHIC FINDING IN THE CHEST. Discussed negative x-ray results with patient at bedside. Discussed need to follow-up with [facility] or [facility] for continued routine medical care. At this time will discharge with return precautions and follow-up recommendations. Verbal discharge instructions given a the bedside and op portunity for questions given. Medication warnings reviewed. Patient is in agreement with this plan and has verbalized understanding of return precautions and the need for primary care follow-up in the next 24-72 hours. This medical record was dictated with voice recognizing software. There may be grammatical, syntax errors that are unintended. - Vital Signs Vital signs: Temp Pulse Resp BP Pulse Ox 97.6 F 58 L 18 142/79 H 97 07/11/19 07:34 03/29/19 07:34 03/29/19 07:34 03/29/19 07:34 03/29/19 07:34 Discharge - Discharge Clinical Impression: Feared condition not demonstrated, Pain of right clavicle Condition: Stable Disposition: HOME, SELF-CARE Additional Instructions: As we discussed you have been seen and treated in the emergency department for your concerns of a bump in the medial aspect of your right clavicle. Your x- rays revealed no signs of abnormalities. I have provided phone numbers for [facility] in [facility]. These are to clinics you can go to to seek routine medical care even though you are uninsured. Please make sure you follow-up with one or both of these clinics. Please return to the emergency room for any other concerns Forms: Return to Work Referrals: [facility] [Provider Group] - Follow up as needed [facility] [Provider Group] - Follow up as needed
[2019-03-29 10:04] VITALS: BP 135/73
== END 2019-03-29 10:06 | disposition home or self-care (01) ==
LOC: ER 07:31
DX: M89.8X8 Other specified disorders of bone, other site (principal); F17.200 Nicotine dependence, unspecified, uncomplicated; I10 Essential (primary) hypertension
CPT/HCPCS: 71046; 99283

== ENCOUNTER 2019-10-15 08:58 | Emergency (ER) | payer SELFPAY ==
[2019-10-15] MEDS ORDERED: ONDANSETRON HCL INJ/PF 4 MG/2 ML SDV IV ONE (10:14)
[2019-10-15] MEDS ORDERED: NORMAL SALINE 1000 ML 1,000 ML IV ONE (10:15)
--- NOTE | 2019-10-15 10:16 | ER Document Report ---
ED Medical Screen (RME) - General Chief Complaint: Flu Symptoms Stated Complaint: DIZZINESS, VOMITING, FEVER Time Seen by Provider: 10/15/19 10:10 Mode of Arrival: Wheelchair Information source: Patient Notes: Otherwise healthy 59-year-old female presenting to the emergency department chief complaint of fever, chills, nausea, vomiting, diarrhea and dizziness. Patient reports symptoms ongoing for the last 2 days. She states she has not gotten out of bed in 2 days, she states the symptoms are getting worse so she decided to come in. Reports all over body aches but denies any specific ab dominal pain or chest pain. Patient alert, oriented, answering all questions appropriately. Breathing equal and unlabored. I have greeted and performed a rapid initial assessment of this patient. A comprehensive ED assessment and evaluation of the patient, analysis of test results and completion of the medical decision making process will be conducted by additional ED providers. I have specifically instructed the patient or family members with the patient to immediately return to any nursing staff should anything change in the patient's condition or with their chief complaint. TRAVEL OUTSIDE OF THE [place] IN LAST 30 DAYS: No - Related Data Allergies/Adverse Reactions: No Known Allergies Allergy (Verified 10/15/19 10:09) Past Medical History - Social History Chew tobacco use (# tins/day): No Frequency of alcohol use: Occasional Drug Abuse: None - Past Medical History Cardiac Medical History: Reports: Hx Hypertension Pulmonary Medical History: Reports: Hx Tuberculosis - as a child, treated Neurological Medical History: Reports: Hx Migraine Endocrine Medical History: Reports: Hx Hypothyroidism Renal/ Medical History: Denies: Hx Peritoneal Dialysis Psychiatric Medical History: Denies: Hx Depression Past Surgical History: Reports: Hx Cholecystectomy, Hx Genitourinary Surgery - BLADDER SLING, Hx Hysterectomy, Hx Orthopedic Surgery - carpal tunnel, both wrists - Immunizations Hx Diphtheria, Pertussis, Tetanus Vaccination: No Physical Exam - Vital signs Vitals: Temp Pulse Resp BP Pulse Ox 98.4 F 74 20 117/56 L 98 10/15/19 09:03 10/15/19 09:03 10/15/19 09:03 10/15/19 09:03 10/15/19 09:03 Course - Vital Signs Vital signs: Temp Pulse Resp BP Pulse Ox 98.4 F 74 20 117/56 L 98 10/15/19 09:03 10/15/19 09:03 10/15/19 09:03 10/15/19 09:03 10/15/19 09:03
[2019-10-15 11:16] LABS: ABSOLUTE LYMPHOCYTES (AUTO) 1.5 10^3/uL (0.5-4.7); ABSOLUTE MONOCYTES (AUTO) 1.1 10^3/uL (0.1-1.4); ABSOLUTE NEUT (AUTO) 5.2 10^3/uL (1.7-8.2); BASOPHILS % (AUTO) 0.2 % (0-2); EOSINOPHILS % (AUTO) 0.1 % (0-6); HEMATOCRIT 47.9 % (36.0-47.0); HEMOGLOBIN 16.3 g/dL (12.0-15.5); LYMPHOCYTES % (AUTO) 19.2 % (13-45); MEAN CORPUSCULAR HEMOGLOBIN 30.5 pg (27.0-33.4); MEAN CORPUSCULAR VOLUME 90 fl (80-97); MONOCYTES % (AUTO) 14.5 % (3-13); PLATELET COUNT 229 10^3/uL (150-450); RED BLOOD COUNT 5.34 10^6/uL (3.72-5.28); RED CELL DISTRIBUTION WIDTH 13.9 % (11.5-14.0); TOTAL CELLS COUNTED % (AUTO) 100 %; WHITE BLOOD COUNT 7.9 10^3/uL (4.0-10.5)
[2019-10-15 11:32] LABS: A TYPE INFLUENZA AG NEGATIVE (NEGATIVE); B INFLUENZA AG NEGATIVE (NEGATIVE)
[2019-10-15 11:47] LABS: ALBUMIN 4.4 g/dL (3.5-5.0); ALKALINE PHOSPHATASE 82 U/L (38-126); ANION GAP 10 (5-19); ASPARTATE AMINO TRANSFERASE 34 U/L (14-36); BILIRUBIN,TOTAL 0.6 mg/dL (0.2-1.3); BLOOD UREA NITROGEN 17 mg/dL (7-20); CALCIUM 9.8 mg/dL (8.4-10.2); CARBON DIOXIDE 25 mmol/L (22-30); CHLORIDE 103 mmol/L (98-107); GLUCOSE 94 mg/dL (75-110); POTASSIUM 3.7 mmol/L (3.6-5.0); TOTAL PROTEIN 7.2 g/dL (6.3-8.2)
--- NOTE | 2019-10-15 12:06 | ER Document Report ---
ED Flu Like - General Chief Complaint: Flu Symptoms Stated Complaint: DIZZINESS, VOMITING, FEVER Time Seen by Provider: 10/15/19 10:10 Mode of Arrival: Wheelchair Notes: CHIEF COMPLAINT: Flulike symptoms HPI: 59-year-old female presenting to the emergency department complaining of flulike symptoms over the last 2 days. Patient states she has had a productive cough. She has dizziness with coughing only. Patient states she has had multiple episodes of vomiting with some diarrhea. No definitive fever but has had chills. Denies dysuria. Denies abdominal pain. Patient would also like her left foot examined because she states she rolled her foot and ankle several days ago and has pain in the medial aspect of the foot when she walks ROS: See HPI - all other systems were reviewed and are otherwise negative Constitutional: no fever Eyes: no drainage, no blurred vision ENT: no runny nose, no sore throat Cardiovascular: no chest pain Resp: no SOB, + cough GI: + vomiting, + diarrhea, no abdominal pain : no dysuria Integumentary: no rash Allergy: no hives Musculoskeletal: no extremity pain or swelling Neurological: no numbness/tingling, no weakness MEDICATIONS: I agree with the patient medications as charted by the RN. ALLERGIES: I agree with the allergies as charted by the RN. PAST MEDICAL HISTORY/PAST SURGICAL HISTORY: Reviewed and agree as charted by RN. SOCIAL HISTORY: Reviewed and agree as charted by RN. FAMILY HISTORY: No significant familial comorbid conditions directly related to patient complaint EXAM: Reviewed vital signs as charted by RN. CONSTITUTIONAL: Alert and oriented and responds appropriately to questions. Slightly ill-appearing; well-nourished HEAD: Normocephalic; atraumatic EYES: PERRL; Conjunctivae clear, sclerae non-icteric ENT: normal nose; no rhinorrhea; moist mucous membranes; pharynx without lesions noted, no uvula edema or deviation, no tonsillar hypertrophy, phonation normal NECK: Supple without meningismus; non-tender; no cervical lymphadenopathy, no masses CARD: RRR; no murmurs, no clicks, no rubs, no gallops; symmetric distal pulses RESP: Normal chest excursion without splinting or tachypnea; breath sounds decreased bilaterally; no wheezes, no rhonchi, no rales, pulse oximetry 98% on room air not hypoxic ABD/GI: Normal bowel sounds; non-distended; soft, non-tender, no rebound, no guarding; no palpable organomegaly or masses. BACK: The back appears normal and is non-tender to palpation, there is no CVA tenderness EXT: Normal ROM in all joints; tenderness over the medial aspect of the left foot on palpation without visible bruising or soft tissue swelling. There is no medial or lateral malleolus tenderness in the left ankle on palpation. Dorsalis pedis and posterior tibial pulses are present in the left foot and ankle. No proximal fibular pain on palpation of the left lower extremity; no cyanosis, no effusions, no edema SKIN: Normal color for age and race; warm; dry; good turgor; no acute lesions noted NEURO: Moves all extremities equally; Motor and sensory function intact PSYCH: The patient's mood and manner are appropriate. Grooming and personal hygiene are appropriate. MDM: 59-year-old female presenting for flulike symptoms with vomiting and cough. Initial screening lab work through the triage process did not show significant leukocytosis, influenza was negative. Awaiting urinalysis. Will add chest x-ra y to evaluate for infiltrate or pneumonia. Will add foot x-ray as patient had injury to the foot several days ago TRAVEL OUTSIDE OF THE [place] IN LAST 30 DAYS: No - Related Data Allergies/Adverse Reactions: No Known Allergies Allergy (Verified 10/15/19 10:09) Past Medical History - General Information source: Patient - Social History Smoking Status: Current Every Day Smoker Chew tobacco use (# tins/day): No Frequency of alcohol use: Occasional Drug Abuse: None Family History: Reviewed & Not Pertinent Patient has suicidal ideation: No Patient has homicidal ideation: No - Past Medical History Cardiac Medical History: Reports: Hx Hypertension Pulmonary Medical History: Reports: Hx Tuberculosis - as a child, treated Neurological Medical History: Reports: Hx Migraine Endocrine Medical History: Reports: Hx Hypothyroidism Renal/ Medical History: Denies: Hx Peritoneal Dialysis Psychiatric Medical History: Denies: Hx Depression Past Surgical History: Reports: Hx Cholecystectomy, Hx Genitourinary Surgery - BLADDER SLING, Hx Hysterectomy, Hx Orthopedic Surgery - carpal tunnel, both wrists - Immunizations Hx Diphtheria, Pertussis, Tetanus Vaccination: No Physical Exam - Vital signs Vitals: Temp Pulse Resp BP Pulse Ox 98.4 F 74 20 117/56 L 98 10/15/19 09:03 10/15/19 09:03 10/15/19 09:03 10/15/19 09:03 10/15/19 09:03 Course - Re-evaluation Re-evalutation: 10/15/19 12:52 Chest x-ray does not show evidence of infiltrate, questionable trace pleural effusion on the right. Patient likely has a bronchitis even though there is not a definitive pneumonia on chest x-ray. Her foot x-ray does not show evidence of fracture. Plan to treat patient with Zithromax, Zofran, PCP follow-up. Urine and lab work do not suggest acute emergent abnormalities. She does not have any chest pain suggesting ACS or CHF or endocarditis. Influenza was negative - Vital Signs Vital signs: Temp Pulse Resp BP Pulse Ox 98.4 F 74 20 117/56 L 98 10/15/19 09:03 10/15/19 09:03 10/15/19 09:03 10/15/19 09:03 10/15/19 09:03 - Laboratory Result Diagrams: 10/15/19 10:40 10/15/19 10:40 Laboratory results interpreted by me: 10/15/19 10/15/19 10:40 12:10 RBC 5.34 H Hgb 16.3 H Hct 47.9 H Edgar % (Auto) 14.5 H Urine Ketones 20 H Urine Urobilinogen 2.0 H Discharge - Discharge Clinical Impression: Acute bronchitis Qualifiers: Bronchitis organism: unspecified organism Qualified Code(s): J20.9 - Acute bronchitis, unspecified Vomiting Qualifiers: Vomiting type: unspecified Vomiting Intractability: non-intractable Nausea p resence: with nausea Qualified Code(s): R11.2 - Nausea with vomiting, unspecified Condition: Stable Disposition: HOME, SELF-CARE Additional Instructions: Take Zofran for any recurrent nausea or vomiting. Take Zithromax to treat the bronchitis. Use the albuterol inhaler to help with coughing. Follow-up with primary care provider for reevaluation call for appointment Prescriptions: Albuterol Sulfate [Proair Respiclick] 90 mcg IH Q4 PRN #1 aer.pow.[id number] PRN Reason: Azithromycin [Zithromax 250 mg Tablet] 250 mg PO ASDIR PRN #6 tablet PRN Reason: Ondansetron [Zofran Odt 4 mg Tablet] 1 - 2 tab PO Q4H PRN #15 tab.rapdis PRN Reason: For Nausea/Vomiting
[2019-10-15 12:26] LABS: APPEARANCE,URINE CLEAR; BILIRUBIN,URINE NEGATIVE (NEGATIVE); COLOR,URINE YELLOW; GLUCOSE, URINE NEGATIVE (NEGATIVE); KETONES,URINE 20 mg/dL (NEGATIVE); LEUKOCYTE ESTERASE,URINE NEGATIVE (NEGATIVE); NITRITE,URINE NEGATIVE (NEGATIVE); PROTEIN,URINE NEGATIVE (NEGATIVE); URINE SPECIFIC GRAVITY 1.012
--- NOTE | 2019-10-15 12:33 | RADIOLOGY REPORT (SQ) ---
EXAM DESCRIPTION: FOOT LEFT COMPLETE COMPLETED DATE/TIME: 10/15/2019 12:24 pm REASON FOR STUDY: fall medial foot pain COMPARISON: None. NUMBER OF VIEWS: Three views. TECHNIQUE: AP, lateral and oblique radiographic images acquired of the left foot. LIMITATIONS: None. FINDINGS: MINERALIZATION: Normal. BONES: No acute fracture or dislocation. No worrisome bone lesions. JOINTS: No effusions. SOFT TISSUES: No soft tissue swelling. No foreign body. OTHER: No other significant finding. IMPRESSION: NEGATIVE STUDY OF THE LEFT FOOT. NO RADIOGRAPHIC EVIDENCE OF ACUTE INJURY. TECHNICAL DOCUMENTATION: JOB ID: [id number] [employer]- All Rights Reserved Reading location - IP/workstation name: [email or web address]
--- NOTE | 2019-10-15 12:34 | RADIOLOGY REPORT (SQ) ---
EXAM DESCRIPTION: CHEST 2 VIEWS COMPLETED DATE/TIME: 10/15/2019 12:24 pm REASON FOR STUDY: cough COMPARISON: 03/29/2019 EXAM PARAMETERS: NUMBER OF VIEWS: two views TECHNIQUE: Digital Frontal and Lateral radiographic views of the chest acquired. RADIATION DOSE: NA LIMITATIONS: none FINDINGS: LUNGS AND PLEURA: There is a small right pleural effusion new from prior study. No consol idation. No pneumothorax. MEDIASTINUM AND HILAR STRUCTURES: No masses or contour abnormalities. HEART AND VASCULAR STRUCTURES: Heart normal size. No evidence for failure. BONES: No acute findings. HARDWARE: None in the chest. OTHER: No other significant finding. IMPRESSION: Small right pleural effusion no other significant findings. TECHNICAL DOCUMENTATION: JOB ID: [id number] [employer]- All Rights Reserved Reading location - IP/workstation name: [email or web address]
[2019-10-15] MEDS ORDERED: ONDANSETRON 4 MG TAB.RAPDIS PO ONE (12:53)
[2019-10-15] MEDS ORDERED: AZITHROMYCIN 250 MG TABLET PO ONE (12:53)
[2019-10-15 13:12] VITALS: BP 129/81
== END 2019-10-15 13:17 | disposition home or self-care (01) ==
LOC: ER 08:58
DX: J20.9 Acute bronchitis, unspecified (principal); R42 Dizziness and giddiness; R11.2 Nausea with vomiting, unspecified; R50.9 Fever, unspecified; F17.200 Nicotine dependence, unspecified, uncomplicated; I10 Essential (primary) hypertension; Z90.49 Acquired absence of other specified parts of digestive tract; Z90.710 Acquired absence of both cervix and uterus
CPT/HCPCS: 99283; 96361; 96374; 36415; 85025; 80053; 81001; 87804; 71046; 73630; S0119; J2405; J7030

== ENCOUNTER 2020-01-31 06:04 | Emergency (ER) | payer SELFPAY ==
[2020-01-31 06:10] VITALS: BP 131/81
--- NOTE | 2020-01-31 07:08 | ER Document Report ---
Entered by ANOOP DEL VALLE SCRIBE 01/31/20 0629 Acting as scribe for:AVTAR DUMONT MD ED Fall - General Chief Complaint: Fall Injury Stated Complaint: HEAD PAIN Time Seen by Provider: 01/31/20 06:13 Mode of Arrival: Ambulatory Information source: Patient Notes: This 59 year old female patient presents to the emergency department today with complaints of pain resulting from a fall that occurred one week ago. Patient states that she was at a friend's house and she stepped into a hole which caused her to fall. Patient complains of left lateral chest wall bruising/pain, head and neck pain, and left leg pain since the fall. TRAVEL OUTSIDE OF THE [place] IN LAST 30 DAYS: No - Related data Allergies/Adverse Reactions: No Known Allergies Allergy (Verified 10/15/19 10:09) Past Medical History - General Information source: Patient, [facility] Records - Social History Smoking Status: Current Every Day Smoker Cigarette use (# per day): Yes - 1/2 PPD Chew tobacco use (# tins/day): No Smoking Education Provided: No Frequency of alcohol use: Occasional Drug Abuse: None Occupation: [employer] Lives with: Family Family History: Reviewed & Not Pertinent Patient has homicidal ideation: No Pulmonary Medical History: Reports: Hx Tuberculosis - as a child, treated Neurological Medical History: Reports: Hx Migraine Endocrine Medical History: Reports: Hx Hypothyroidism - Slightly elevated TSH in 2017. Renal/ Medical History: Reports: Hx Kidney Stones Past Surgical History: Reports: Hx Cholecystectomy, Hx Genitourinary Surgery - BLADDER SLING, Hx Hysterectomy, Hx Orthopedic Surgery - carpal tunnel, both wrists - Immunizations Hx Diphtheria, Pertussis, Tetanus Vaccination: No Review of Systems - Review of Systems Constitutional: See HPI, Other - fall EENT: No symptoms reported Cardiovascular: No symptoms reported Respiratory: No symptoms reported Gastrointestinal: No symptoms reported Genitourinary: No symptoms reported Female Genitourinary: No symptoms reported Musculoskeletal: See HPI, Muscle pain, Muscle stiffness Skin: No symptoms reported Hematologic/Lymphatic: No symptoms reported Neurological/Psychological: See HPI, Headaches -: Yes All other systems reviewed and negative Physical Exam - Vital signs Vitals: Temp Pulse Resp BP Pulse Ox 97.7 F 64 20 131/81 H 96 01/31/20 06:09 01/31/20 06:09 01/31/20 06:09 01/31/20 06:09 01/31/20 06:09 Interpretation: Normal - General General appearance: Appears well, Alert - HEENT Head: Normocephalic, Other - right occipital and parietal scalp tenderness with palpation without swelling Eyes: Normal Pupils: PERRL Neck: Other - Posterior cervical musculature tenderness with palpation - Respiratory Respiratory status: No respiratory distress Chest status: Nontender Breath sounds: Normal Chest palpation: Tender - lateral inferior ribs are tenderness with old ecchymosis - Cardiovascular Rhythm: Regular Heart sounds: Normal auscultation Murmur: No - Abdominal Inspection: Normal Distension: No distension Bowel sounds: Normal Tenderness: Nontender Organomegaly: No organomegaly - Back Back: Normal, Nontender - Extremities General upper extremity: Normal inspection, Nontender, Normal ROM General lower extremity: Other - left lateral thigh bruising - Neurological Neuro grossly intact: Yes Cognition: Normal Orientation: AAOx4 Flowood Coma Scale Eye Opening: Spontaneous Claudio Coma Scale Verbal: Oriented Claudio Coma Scale Motor: Obeys Commands Flowood Coma Scale Total: 15 Speech: Normal - Psychological Associated symptoms: Normal affect, Normal mood - Skin Skin Temperature: Warm Skin Moisture: Dry Skin Color: Normal Course - Vital Signs Vital signs: Temp Pulse Resp BP Pulse Ox 97.7 F 64 20 131/81 H 96 01/31/20 06:11 01/31/20 06:09 01/31/20 06:09 01/31/20 06:09 01/31/20 06:09 Discharge - Discharge Clinical Impression: Scalp contusion Qualifiers: Encounter type: initial encounter Qualified Code(s): S00.03XA - Contusion of scalp, initial encounter Tension type headache Qualifiers: Headache chronicity pattern: acute headache Intractability: not intractable Qualified Code(s): G44.209 - Tension-type headache, unspecified, not intractable Condition: Stable Disposition: HOME, SELF-CARE Additional Instructions: Scalp Contusion: Your injury has resulted in a contusion -- a crushing of the deep tissues. No injury to important structures was detected during the physician's exam. Contusions vary in the amount of pain they cause, and in the length of time required for healing. Typically, the area will become bruised, and will remain painful to touch for two or three weeks. However, most patients are back to working and playing within a few days. After the initial period of rest and cold-packs, your symptoms (together with the doctor's recommendations) will determine how rapidly you can get back to full activity. Usually this means "do what feels okay, but don't do things that hurt." If re-examination was recommended, it's important to follow up as instructed. Call the doctor or return any time if pain increases, if swelling becomes severe, if you develop numbness or weakness in an injured extremity, or if any other alarming symptoms occur. Tension Headache: Your problem has been diagnosed as muscle tension headache. This very common type of headache occurs because of tightness in the muscles of the head and neck. Often, the antiinflammatory pain medications such as ibuprofen or Aleve are recommended, as these also decrease the irritability of the painful tissues. Tylenol is also helpful. Your doctor has evaluated your headache problem, and finds no evidence of a serious health problem as a cause for the headache. If your headache becomes more severe, or if new symptoms develop (such as fever, stiff neck, vomiting, or decreasing alertness) you should be re-examined by the physician. The fall you reported caused a contusion to your right occipito-parietal scalp region. You have also probably strained your posterior cervical(neck) muscles causing them to be tender. The contusion you have on your left side involved soft tissues and did not appear to involve any's important structures. Take Tylenol and ibuprofen or Aleve for your discomfort as needed. Follow-up with a local medical doctor if not improving over the next 1 to 2 weeks. RETURN TO THE EMERGENCY ROOM IF ANY NEW OR WORSENING SYMPTOMS. I personally performed the services described in the documentation, reviewed and edited the documentation which was dictated to the scribe in my presence, and it accurately records my words and actions.
== END 2020-01-31 06:42 | disposition home or self-care (01) ==
LOC: ER 06:04
DX: S00.03XA Contusion of scalp, initial encounter (principal); S20.212A Contusion of left front wall of thorax, initial encounter; M54.2 Cervicalgia; R07.89 Other chest pain; W19.XXXA Unspecified fall, initial encounter; Y92.009 Unspecified place in unspecified non-institutional (private) residence as the place of occurrence of the external cause; G44.209 Tension-type headache, unspecified, not intractable; M79.10 Myalgia, unspecified site; F17.210 Nicotine dependence, cigarettes, uncomplicated
CPT/HCPCS: 99283

== ENCOUNTER 2020-05-15 07:03 | Emergency (ER) | payer SELFPAY ==
--- NOTE | 2020-05-15 08:37 | RADIOLOGY REPORT (SQ) ---
EXAM DESCRIPTION: ANKLE LEFT COMPLETE IMAGES COMPLETED DATE/TIME: 05/15/2020 7:59 am REASON FOR STUDY: pain and injury COMPARISON: None. NUMBER OF VIEWS: Three views. TECHNIQUE: AP, lateral, and oblique radiographic images acquired of the left ankle. LIMITATIONS: None. FINDINGS: MINERALIZATION: Normal. BONES: No acute fracture or dislocation. No worrisome bone lesions. JOINTS: No effusions. SOFT TISSUES: No soft tissue swelling. No foreign body. OTHER: No other significant finding. IMPRESSION: NEGATIVE STUDY OF THE LEFT ANKLE. NO RADIOGRAPHIC EVIDENCE OF ACUTE INJURY. TECHNICAL DOCUMENTATION: JOB ID: [id number] [employer]- All Rights Reserved Reading location - IP/workstation name: [email or web address]
--- NOTE | 2020-05-15 08:53 | ER Document Report ---
ED Extremity Problem, Lower - General Chief Complaint: Foot Pain Stated Complaint: FOOT PAIN Time Seen by Provider: 05/15/20 07:49 Notes: CHIEF COMPLAINT: Left foot injury 3 days ago HPI: 59-year-old female presenting for evaluation of pain to the plantar aspect of the left foot after injury 3 days ago. Patient states she slipped on her wet deck and slightly rolled the foot. She has been able to weight-bear with discomfort. Took ibuprofen last night for the pain. Denies other injuries or complaints ROS: See HPI - all other systems were reviewed and are otherwise negative Constitutional: no fever Integumentary: no rash Allergy: no hives Musculoskeletal: + extremity pain, no swelling Neurological: no numbness/tingling, no weakness MEDICATIONS: I agree with the patient medications as charted by the RN. ALLERGIES: I agree with the allergies as charted by the RN. PAST MEDICAL HISTORY/PAST SURGICAL HISTORY: Reviewed and agree as charted by RN. SOCIAL HISTORY: Reviewed and agree as charted by RN. FAMILY HISTORY: No significant familial comorbid conditions directly related to patient complaint EXAM: Reviewed vital signs as charted by RN. CONSTITUTIONAL: Alert and oriented and responds appropriately to questions. Well -appearing; well-nourished HEAD: Normocephalic; atraumatic EYES: Conjunctivae clear, sclerae non-icteric ENT: normal nose; no rhinorrhea; moist mucous membranes NECK: Supple without meningismus CARD: RRR; no murmurs, no clicks, no rubs, no gallops; symmetric distal pulses RESP: Normal chest excursion without splinting or tachypnea ABD/GI: non-distended BACK: The back appears normal EXT: Normal ROM in all joints; no cyanosis, no effusions, there is no visible bruising or soft tissue swelling to the left foot. There is no pain on palpation of the proximal fibular region of the left lower extremity. There is no tenderness on palpation of the medial or lateral malleolus of the left ankle. There is no tenderness on palpation of the dorsal aspect of the left foot including the tarsals and metatarsals there is pain on palpation of the plantar aspect of the left foot. Dorsalis pedis and posterior tibial pulses are present in the left foot and ankle. Sensation is intact in the toes with capillary refill less than 3 seconds. SKIN: Normal color for age and race; warm; dry; good turgor; no acute lesions noted NEURO: Moves all extremities equally; Motor and sensory function intact PSYCH: The patient's mood and manner are appropriate. Grooming and personal hygiene are appropriate. MDM: 59-year-old female injury to the left plantar aspect of the foot 3 days ago. Likely a strain x-ray does not show evidence of a fracture or dislocation. She has no bony tenderness. Placed in a walking shoe for comfort, anti- inflammatories, ice, orthopedic follow-up TRAVEL OUTSIDE OF THE [place] IN LAST 30 DAYS: No - Related Data Allergies/Adverse Reactions: No Known Allergies Allergy (Verified 10/15/19 10:09) Past Medical History - Social History Smoking Status: Current Every Day Smoker Frequency of alcohol use: Occasional Family History: Reviewed & Not Pertinent - Past Medical History Cardiac Medical History: Reports: Hx Hypertension Pulmonary Medical History: Reports: Hx Tuberculosis - as a child, treated Neurological Medical History: Reports: Hx Migraine Endocrine Medical History: Reports: Hx Hypothyroidism - Slightly elevated TSH in 2017. Renal/ Medical History: Reports: Hx Kidney Stones. Denies: Hx Peritoneal Dialysis Psychiatric Medical History: Denies: Hx Depression Past Surgical History: Reports: Hx Cholecystectomy, Hx Genitourinary Surgery - BLADDER SLING, Hx Hysterectomy, Hx Orthopedic Surgery - carpal tunnel, both wrists - Immunizations Hx Diphtheria, Pertussis, Tetanus Vaccination: No Physical Exam - Vital signs Vitals: Temp Pulse Resp BP Pulse Ox 98.0 F 75 18 140/88 H 98 05/15/20 07:29 05/15/20 07:29 05/15/20 07:29 05/15/20 07:29 05/15/20 07:29 Course - Vital Signs Vital signs: Temp Pulse Resp BP Pulse Ox 98.0 F 75 18 140/88 H 98 05/15/20 07:29 05/15/20 07:29 05/15/20 07:29 05/15/20 07:29 05/15/20 07:29 Discharge - Discharge Clinical Impression: Sprain of foot, left Qualifiers: Encounter type: initial encounter Qualified Code(s): S93.602A - Unspecified sprain of left foot, initial encounter Condition: Stable Disposition: HOME, SELF-CARE Additional Instructions: 1. ice and elevate the lower extremity as much as possible 2. Use the post op shoe for comfort 3. medications for pain as prescribed 4. follow up with orthopedics for further evaluation and treatment, call for appt. Prescriptions: Diclofenac Sodium [Voltaren 50 Mg Tablet.] 50 mg PO BID #20 tablet. Forms: Return to Work Referrals: MYLENE [facility] DO [ACTIVE STAFF] - Follow up as needed
[2020-05-15 08:57] VITALS: BP 126/86
== END 2020-05-15 08:59 | disposition home or self-care (01) ==
LOC: ER 07:03
DX: S93.602A Unspecified sprain of left foot, initial encounter (principal); M79.672 Pain in left foot; W01.0XXA Fall on same level from slipping, tripping and stumbling without subsequent striking against object, initial encounter; F17.200 Nicotine dependence, unspecified, uncomplicated; I10 Essential (primary) hypertension
CPT/HCPCS: 99283

== ENCOUNTER 2020-06-17 21:18 | Emergency (ER) | payer SELFPAY | END 2020-06-17 22:00 | disposition left against medical advice (07) | LOC: ER 21:18 | DX: Z53.21 Procedure and treatment not carried out due to patient leaving prior to being seen by health care provider (principal) ==

== ENCOUNTER 2020-06-18 08:10 | Emergency (ER) | payer SELFPAY ==
[2020-06-18] MEDS ORDERED: NORMAL SALINE 1000 ML 1,000 ML IV ONE (09:02)
[2020-06-18] MEDS ORDERED: KETOROLAC TROMETHAMINE INJ/PF 30 MG/1 ML SDV IV ONE (09:02)
[2020-06-18] MEDS ORDERED: ONDANSETRON HCL INJ/PF 4 MG/2 ML SDV IV ONE (09:02)
[2020-06-18 09:11] LABS: ABSOLUTE BASOPHILS # (AUTO) 0.1 10^3/uL (0.0-0.2); ABSOLUTE EOSINOPHILS # (AUTO) 0.2 10^3/uL (0.0-0.6); ABSOLUTE LYMPHOCYTES (AUTO) 2.1 10^3/uL (0.5-4.7); ABSOLUTE MONOCYTES (AUTO) 0.5 10^3/uL (0.1-1.4); ABSOLUTE NEUT (AUTO) 4.1 10^3/uL (1.7-8.2); BASOPHILS % (AUTO) 0.8 % (0-2); EOSINOPHILS % (AUTO) 2.9 % (0-6); HEMOGLOBIN 14.5 g/dL (12.0-15.5); LYMPHOCYTES % (AUTO) 30.3 % (13-45); MEAN CORPUSCULAR HEMOGLOBIN 31.7 pg (27.0-33.4); MEAN CORPUSCULAR HGB CONC 34.5 g/dL (32.0-36.0); MEAN CORPUSCULAR VOLUME 92 fl (80-97); MONOCYTES % (AUTO) 7.7 % (3-13); PLATELET COUNT 318 10^3/uL (150-450); RED BLOOD COUNT 4.57 10^6/uL (3.72-5.28); RED CELL DISTRIBUTION WIDTH 13.5 % (11.5-14.0); SEGMENTED NEUTROPHILS % (AUTO) 58.3 % (42-78); TOTAL CELLS COUNTED % (AUTO) 100 %
--- NOTE | 2020-06-18 09:29 | ER Document Report ---
ED General - General Chief Complaint: Nausea Stated Complaint: DIZZINESS,HEADACHE,VOMITING Time Seen by Provider: 06/18/20 08:40 Mode of Arrival: Ambulatory Information source: Patient TRAVEL OUTSIDE OF THE [place] IN LAST 30 DAYS: No - HPI Notes: Patient presents with complaints of weakness, headache, dizziness, and hot and cold flashes. She states this is been going on for about 1 week. She states she was diagnosed several days prior to the symptoms starting's with a right otitis media. She states she was given amoxicillin for that diagnosis. She states the ear does feel better now. But she has not finished all the amoxicillin at this time. She has had nausea but no vomiting. She is also had no diarrhea. She denies pain anywhere else other than her headache. Her headache is posterior and throbbing. Is mild to moderate. Nothing makes it better or worse. No significant radiation. No fevers. No known covid virus exposures. - Related Data Allergies/Adverse Reactions: No Known Allergies Allergy (Verified 06/18/20 09:44) Past Medical History - General Information source: Patient - Social History Smoking Status: Current Every Day Smoker Frequency of alcohol use: Rare Drug Abuse: Other Family History: Reviewed & Not Pertinent - Past Medical History Cardiac Medical History: Reports: Hx Hypertension Pulmonary Medical History: Reports: Hx Tuberculosis - as a child, treated Neurological Medical History: Reports: Hx Migraine Endocrine Medical History: Reports: Hx Hypothyroidism - Slightly elevated TSH in 2017. Renal/ Medical History: Reports: Hx Kidney Stones. Denies: Hx Peritoneal Dialysis Psychiatric Medical History: Denies: Hx Depression Past Surgical History: Reports: Hx Cholecystectomy, Hx Genitourinary Surgery - BLADDER SLING, Hx Hysterectomy, Hx Orthopedic Surgery - carpal tunnel, both wrists - Immunizations Hx Diphtheria, Pertussis, Tetanus Vaccination: No Review of Systems - Review of Systems Constitutional: Chills, Fever, Malaise, Recent illness Cardiovascular: denies: Chest pain, Palpitations Respiratory: denies: Cough Gastrointestinal: Nausea -: Yes All other systems reviewed and negative Physical Exam - Vital signs Vitals: Temp Pulse Resp BP Pulse Ox 97.6 F 80 16 131/73 H 96 06/18/20 08:19 06/18/20 08:19 06/18/20 08:19 06/18/20 08:19 06/18/20 08:19 Interpretation: Normal - General General appearance: Appears well, Alert - HEENT Head: Normocephalic, Atraumatic Eyes: Normal Pupils: PERRL - Respiratory Respiratory status: No respiratory distress Chest status: Nontender Breath sounds: Normal Chest palpation: Normal - Cardiovascular Rhythm: Regular Heart sounds: Normal auscultation Murmur: No - Abdominal Inspection: Normal Distension: No distension Bowel sounds: Normal Tenderness: Nontender Organomegaly: No organomegaly - Back Back: Normal, Nontender - Extremities General upper extremity: Normal inspection, Nontender, Normal color, Normal ROM, Normal temperature General lower extremity: Normal inspection, Nontender, Normal color, Normal ROM, Normal temperature, Normal weight bearing. No: Ad's sign - Neurological Neuro grossly intact: Yes Cognition: Normal Orientation: AAOx4 Claudio Coma Scale Eye Opening: Spontaneous Claudio Coma Scale Verbal: Oriented Claudio Coma Scale Motor: Obeys Commands Claudio Coma Scale Total: 15 Speech: Normal Cranial nerves: Normal Cerebellar coordination: Normal. No: Gait ataxia Motor strength normal: LUE, RUE, LLE, RLE Additional motor exam normals: Equal summer counselor. No: Pronator drift Sensory: Normal - Psychological Associated symptoms: Normal affect, Normal mood - Skin Skin Temperature: Warm Skin Moisture: Dry Skin Color: Normal Course - Re-evaluation Re-evalutation: 06/18/20 10:42 Patient presents with fever chills headache and nausea. Exam is unremarkable. Vital signs are unremarkable. Work-up including imaging laboratories are also unremarkable. I think the patient probably has a viral syndrome in addition I have told her to stop the amoxicillin because a believe that some of her symp toms could possibly be a reaction to that. - Vital Signs Vital signs: Temp Pulse Resp BP Pulse Ox 97.6 F 80 16 145/86 H 98 06/18/20 08:19 06/18/20 08:19 06/18/20 09:01 06/18/20 09:01 06/18/20 09:01 - Laboratory Result Diagrams: 06/18/20 08:58 06/18/20 08:58 Laboratory results interpreted by me: 06/18/20 08:58 Chloride 108 H - Diagnostic Test Radiology reviewed: Image reviewed, Reports reviewed - EKG Interpretation by Me EKG shows normal: Sinus rhythm Rate: Normal - 66 Rhythm: NSR [place]/QRS: No: Right axis deviation, Left axis deviation Discharge - Discharge Clinical Impression: Viral syndrome, Weakness, Dizziness Headache Qualifiers: Headache type: unspecified Headache chronicity pattern: acute headache Intractability: intractable Qualified Code(s): R51 - Headache Condition: Stable Disposition: HOME, SELF-CARE Instructions: Viral Syndrome ([facility]), Headache ([facility]) Prescriptions: Ondansetron [Zofran Odt 4 mg Tablet] 1 - 2 tab PO Q4HP PRN #10 tab.rapdis PRN Reason: Tramadol HCl [Ultram] 50 mg PO Q6 PRN 3 Days #12 tablet PRN Reason: For Pain Forms: Return to Work Referrals: [facility] [Provider Group] - Follow up in 1 week
[2020-06-18 09:30] LABS: ALBUMIN 4.2 g/dL (3.5-5.0); ALKALINE PHOSPHATASE 108 U/L (38-126); ANION GAP 8 (5-19); ASPARTATE AMINO TRANSFERASE 27 U/L (14-36); BILIRUBIN,DIRECT 0.2 mg/dL (0.0-0.4); BILIRUBIN,TOTAL 0.3 mg/dL (0.2-1.3); BLOOD UREA NITROGEN 18 mg/dL (7-20); CALCIUM 9.4 mg/dL (8.4-10.2); CARBON DIOXIDE 26 mmol/L (22-30); CHLORIDE 108 mmol/L (98-107); GLUCOSE 104 mg/dL (75-110); POTASSIUM 4.5 mmol/L (3.6-5.0); TOTAL PROTEIN 6.7 g/dL (6.3-8.2)
--- NOTE | 2020-06-18 09:53 | RADIOLOGY REPORT (SQ) ---
EXAM DESCRIPTION: CT HEAD WITHOUT IMAGES COMPLETED DATE/TIME: 06/18/2020 9:34 am REASON FOR STUDY: headache/dizzy COMPARISON: CT of the head without contrast from 08/13/2017. TECHNIQUE: Axial images acquired through the brain without intravenous contrast. Images reviewed wi th bone, brain and subdural windows. Additional sagittal and coronal reconstructions were generated. Images stored on PACS. All CT scanners at this facility use dose modulation, iterative reconstruction, and/or weight based d osing when appropriate to reduce radiation dose to as low as reasonably achievable (ALARA). [facility]: Dose Right [facility]: CareDose [facility]: Dose Right [facility]: Teradose 4D [facility]: [employer] RADIATION DOSE: CT Rad equipment meets quality standard of care and radiation dose reduction techniq ues were employed. CTDIvol: 53.2 mGy. DLP: 964 mGy-cm. LIMITATIONS: None. FINDINGS: There is no acute intracranial hemorrhage, vascular territorial infarct, extra-axial fluid collection, mass effect or midline shift. The ocampo-white matter differentiation is preserved. The caliber of the ventricles is concordant with the degree of sulcation. There is no effacement of the cerebral sulci or basal subarachnoid cisterns. The orbits and globes are intact. The paranasal sinuses are clear. There is no fracture of the calv arium. IMPRESSION: No acute cardiopulmonary process. EVIDENCE OF ACUTE STROKE: NO. COMMENT: Quality ID # [id number]: Final reports with documentation of one or more dose reduction techniques (e.g., Automated exposure control, adjustment of the mA and/or kV according to patient size, use of iterative reconstruction technique) TECHNICAL DOCUMENTATION: JOB ID: [id number] 2010 [employer]- All Rights Reserved Reading location - IP/workstation name: [email or web address]
[2020-06-18 10:13] LABS: AMORPHOUS SEDIMENT,URINE TRACE /HPF; APPEARANCE,URINE CLOUDY; BILIRUBIN,URINE NEGATIVE (NEGATIVE); COLOR,URINE YELLOW; GLUCOSE, URINE NEGATIVE (NEGATIVE); KETONES,URINE NEGATIVE (NEGATIVE); PROTEIN,URINE NEGATIVE (NEGATIVE); URINE SPECIFIC GRAVITY 1.009; UROBILINOGEN,URINE NEGATIVE mg/dL (<2.0)
[2020-06-18 11:00] VITALS: BP 140/89
--- NOTE | 2020-06-18 11:04 | EKG REPORT ---
SEVERITY:- ABNORMAL ECG - SINUS RHYTHM NONSPECIFIC ST-T CHANGES- INFERIOR LEADS : Confirmed by: Calvin Martinez MD 18-Jun-2020 11:03:39
== END 2020-06-18 10:59 | disposition home or self-care (01) ==
LOC: ER 08:10
DX: B34.9 Viral infection, unspecified (principal); R53.1 Weakness; R51 Headache; R42 Dizziness and giddiness; R11.2 Nausea with vomiting, unspecified; F17.200 Nicotine dependence, unspecified, uncomplicated; I10 Essential (primary) hypertension
CPT/HCPCS: 93005; 99285; 96361; 96374; 96375; 36415; 85025; 80053; 81001; 84484; 70450; 93010; J1885; J2405; J7030